=== PATIENT | male | born 1960 | race Caucasian/White ===

== ENCOUNTER 2018-05-25 11:50 | Emergency (ER) | payer BC ==
[2018-05-25 12:02] VITALS: RESP 18
[2018-05-25] MEDS ORDERED: KETOROLAC 30 MG/ML 1 ML VIAL IVP STA (14:02)
[2018-05-25] MEDS ORDERED: SODIUM CHLORIDE 0.9% 1,000 ML IV STA (14:02)
--- NOTE | 2018-05-25 14:17 | ED ---
General Adult HPI - General Chief complaint: Upper Respiratory Infection Stated complaint: COUGH, POSS PNEUMO Time Seen by Provider: 05/25/18 13:50 Source: patient, RN notes reviewed Mode of arrival: ambulatory Limitations: no limitations - History of Present Illness Initial comments: 57-year-old male presents to the emergency department for a chief complaint of cough 2 weeks. Patient states the cough has been productive with green and yellow mucus. Patient admits to smoking but denies history of COPD or asthma. Patient denies any fevers or chills at home. Patient states his has been diagnosed with bronchitis. Patient states he has chest pains across the anterior aspect of his chest when he coughs. He denies pain in the chest when not coughing. He states the pain is sharp in nature. Patient has no other complaints at this time including shortness of breath, chest pain, abdominal pain, nausea or vomiting, headache, or visual changes. - Related Data Home Medications Medication Instructions Recorded Confirmed Aspirin 81 mg PO DAILY 08/14/14 05/25/18 Metoprolol Tartrate [Lopressor] 25 mg PO BID 08/14/14 05/25/18 Simvastatin [Zocor] 20 mg PO HS 05/25/18 05/25/18 Previous Rx's Medication Instructions Recorded Albuterol Inhaler [Ventolin Hfa 1 - 2 puff INHALATION Q6HR PRN #1 05/25/18 Inhaler] inhaler Azithromycin [Zithromax Z-pack] 250 mg PO DIRECTED #6 tab 05/25/18 Benzonatate [Tessalon Perles] 200 mg PO Q8H PRN #15 capsule 05/25/18 predniSONE 50 mg PO DAILY #5 tablet 05/25/18 Allergies Allergy/AdvReac Type Severity Reaction Status Date / Time hydrocodone [From [place]] Allergy Unknown Verified 05/25/18 15:19 Review of Systems ROS Statement: Those systems with pertinent positive or pertinent negative responses have been documented in the HPI. ROS Other: All systems not noted in ROS Statement are negative. Past Medical History Additional Past Medical History / Comment(s): aortic aneurysm History of Any Multi-Drug Resistant Organisms: None Reported Past Surgical History: Heart Catheterization, Joint Replacement, Orthopedic Surgery Additional Past Surgical History / Comment(s): knee replacement Past Anesthesia/Blood Transfusion Reactions: No Reported Reaction Past Psychological History: No Psychological Hx Reported Smoking Status: Current every day smoker Past Alcohol Use History: Daily Past Drug Use History: None Reported General Exam Limitations: no limitations General appearance: alert, in no apparent distress Head exam: Present: atraumatic, normocephalic, normal inspection Eye exam: Present: normal appearance, PERRL, EOMI. Absent: scleral icterus, conjunctival injection, periorbital swelling ENT exam: Present: normal exam, mucous membranes moist Course Vital Signs 05/25/18 05/25/18 11:59 12:59 Temperature 98.2 F Pulse Rate 69 68 Respiratory 18 18 Rate Blood Pressure 117/82 O2 Sat by Pulse 98 97 Oximetry EKG Findings - EKG Comments: EKG Findings:: EKG shows a sinus bradycardia with a ventricular rate of 50, CO interval 198, QRS duration 96 - EKG Results: EKG: interpreted by ERMD (myself and Dr lilly), not changed from: (NO PREVIOUS EKG TO COMPARE) Medical Decision Making - Medical Decision Making 57-year-old male presents to the emergency determine for chief complaint of cough 2 weeks. Patient is concerned he may have pneumonia. Patient states he also has chest pain when coughing only. No pain in chest besides coughing. Pain also radiates to the back only when coughing. He denies shortness of breath. Patient does have a ascending thoracic aortic aneurysm. On exam lungs are clear to auscultation bilaterally. No wheezing or rhonchi noted. Patient is well appearing. CBC and CMP unremarkable. Troponin negative. Cardiac panel negative. Chest x-ray shows no acute cardiopulmonary process. CTA shows no evidence of pulmonary embolism. Aneurysm of the ascending aorta is stable compared to old exam at 4.4 cm. There is no sign of dissection. Patient will be given an inhaler as well as a steroid. He will follow up with primary care in 1-[address] Lilly did talk to the patient about his 4.4 cm aortic aneurysm and discussed the importance of following up with a cardiothoracic surgeon. Patient has been following up with Dr. RICO Sellers for this but will contact a cardiothoracic surgeon. Patient likely has a bronchitis. He will be given azithromycin, prednisone, albuterol inhaler, and Tessalon Perles. He will follow up with primary care in 1-2 days. He will return if he has any worsening symptoms. - Lab Data Result diagrams: 05/25/18 14:29 05/25/18 14:29 Lab Results 05/25/18 05/25/18 05/25/18 Range/Units 14:29 14:29 14:29 WBC 7.9 (3.8-10.6) k/uL RBC 4.84 (4.30-5.90) m/uL Hgb 15.2 (13.0-17.5) gm/dL Hct 46.6 (39.0-53.0) % MCV 96.1 (80.0-100.0) fL MCH 31.4 (25.0-35.0) pg MCHC 32.7 (31.0-37.0) g/dL RDW 13.2 (11.5-15.5) % Plt Count 180 (150-450) k/uL Neutrophils % 61 % Lymphocytes % 25 % Monocytes % 9 % Eosinophils % 2 % Basophils % 1 % Neutrophils # 4.8 (1.3-7.7) k/uL Lymphocytes # 2.0 (1.0-4.8) k/uL Monocytes # 0.7 (0-1.0) k/uL Eosinophils # 0.2 (0-0.7) k/uL Basophils # 0.1 (0-0.2) k/uL PT (9.0-12.0) sec INR (<1.2) APTT (22.0-30.0) sec Sodium 136 L (137-145) mmol/L Potassium 4.8 (3.5-5.1) mmol/L Chloride 105 (98-107) mmol/L Carbon Dioxide 23 (22-30) mmol/L Anion Gap 8 mmol/L BUN 17 (9-20) mg/dL Creatinine 0.80 (0.66-1.25) mg/dL Est GFR (CKD-EPI)AfAm >90 (>60 ml/min/1.73 sqM) Est GFR (CKD-EPI)NonAf >90 (>60 ml/min/1.73 sqM) Glucose 101 H (74-99) mg/dL Calcium 9.5 (8.4-10.2) mg/dL Magnesium 2.2 (1.6-2.3) mg/dL Total Bilirubin 0.5 (0.2-1.3) mg/dL AST 35 (17-59) U/L ALT 36 (21-72) U/L Alkaline Phosphatase 69 (38-126) U/L Total Creatine Kinase 175 H (55-170) U/L CK-MB (CK-2) 1.7 (0.0-2.4) ng/mL CK-MB (CK-2) Rel Index 1.0 Troponin I <0.012 (0.000-0.034) ng/mL Total Protein 7.5 (6.3-8.2) g/dL Albumin 4.3 (3.5-5.0) g/dL 05/25/18 Range/Units 14:29 WBC (3.8-10.6) k/uL RBC (4.30-5.90) m/uL Hgb (13.0-17.5) gm/dL Hct (39.0-53.0) % MCV (80.0-100.0) fL MCH (25.0-35.0) pg MCHC (31.0-37.0) g/dL RDW (11.5-15.5) % Plt Count (150-450) k/uL Neutrophils % % Lymphocytes % % Monocytes % % Eosinophils % % Basophils % % Neutrophils # (1.3-7.7) k/uL Lymphocytes # (1.0-4.8) k/uL Monocytes # (0-1.0) k/uL Eosinophils # (0-0.7) k/uL Basophils # (0-0.2) k/uL PT 9.6 (9.0-12.0) sec INR 1.0 (<1.2) APTT 23.3 (22.0-30.0) sec Sodium (137-145) mmol/L Potassium (3.5-5.1) mmol/L Chloride (98-107) mmol/L Carbon Dioxide (22-30) mmol/L Anion Gap mmol/L BUN (9-20) mg/dL Creatinine (0.66-1.25) mg/dL Est GFR (CKD-EPI)AfAm (>60 ml/min/1.73 sqM) Est GFR (CKD-EPI)NonAf (>60 ml/min/1.73 sqM) Glucose (74-99) mg/dL Calcium (8.4-10.2) mg/dL Magnesium (1.6-2.3) mg/dL Total Bilirubin (0.2-1.3) mg/dL AST (17-59) U/L ALT (21-72) U/L Alkaline Phosphatase (38-126) U/L Total Creatine Kinase (55-170) U/L CK-MB (CK-2) (0.0-2.4) ng/mL CK-MB (CK-2) Rel Index Troponin I (0.000-0.034) ng/mL Total Protein (6.3-8.2) g/dL Albumin (3.5-5.0) g/dL Disposition Clinical Impression: Bronchitis Disposition: HOME SELF-CARE Condition: Good Instructions: Upper Respiratory Infection (ED) Additional Instructions: Please take steroid and use inhaler as directed. Please follow-up with primary care provider in one to 2 days. Return to the emergency department if you have any worsening symptoms. Prescriptions: Albuterol Inhaler [Ventolin Hfa Inhaler] 1 - 2 puff INHALATION Q6HR PRN #1 inhaler PRN Reason: Shortness Of Breath Azithromycin [Zithromax Z-pack] 250 mg PO DIRECTED #6 tab Benzonatate [Tessalon Perles] 200 mg PO Q8H PRN #15 capsule PRN Reason: Cough predniSONE 50 mg PO DAILY #5 tablet Is patient prescribed a controlled substance at d/c from ED?: No Referrals: Christina Martini MD [Primary Care Provider] - 1-2 days Time of Disposition: 17:45
[2018-05-25 15:00] LABS: Basophils # (A) 0.1 k/uL (0-0.2); Basophils % (A) 1 %; Eosinophils # (A) 0.2 k/uL (0-0.7); Eosinophils % (A) 2 %; HCT 46.6 % (39.0-53.0); HGB 15.2 gm/dL (13.0-17.5); Lymphocytes % (A) 25 %; MCH 31.4 pg (25.0-35.0); MCHC 32.7 g/dL (31.0-37.0); MCV 96.1 fL (80.0-100.0); Mean Platelet Volume 8.2; Monocytes # (A) 0.7 k/uL (0-1.0); Monocytes % (A) 9 %; Neutrophils # (A) 4.8 k/uL (1.3-7.7); Neutrophils % (A) 61 %; Platelet Count 180 k/uL (150-450); RBC 4.84 m/uL (4.30-5.90); RDW 13.2 % (11.5-15.5); WBC 7.9 k/uL (3.8-10.6)
--- NOTE | 2018-05-25 15:04 | XR ---
EXAMINATION TYPE: XR chest 2V DATE OF EXAM: 05/25/2018 COMPARISON: 07/05/2011 HISTORY: 57-year-old male with chest pain TECHNIQUE: PA and lateral views FINDINGS: The cardiomediastinal silhouette, aorta, and pulmonary vasculature are within normal limits. Lungs an d pleural spaces are clear. IMPRESSION: No acute cardiopulmonary process.
[2018-05-25 15:05] LABS: Partial Thromboplastin Time 23.3 sec (22.0-30.0); Prothrombin Time 9.6 sec (9.0-12.0)
[2018-05-25 15:08] LABS: ALT 36 U/L (21-72); AST 35 U/L (17-59); Albumin 4.3 g/dL (3.5-5.0); Alkaline Phosphatase 69 U/L (38-126); Anion Gap 8 mmol/L; Blood Urea Nitrogen 17 mg/dL (9-20); Calcium 9.5 mg/dL (8.4-10.2); Carbon Dioxide 23 mmol/L (22-30); Chloride 105 mmol/L (98-107); Glucose 101 mg/dL (74-99); Magnesium 2.2 mg/dL (1.6-2.3); Potassium 4.8 mmol/L (3.5-5.1); Sodium 136 mmol/L (137-145); Total Bilirubin 0.5 mg/dL (0.2-1.3); Total Protein 7.5 g/dL (6.3-8.2)
[2018-05-25 15:24] LABS: Creatine Kinase 175 U/L (55-170)
[2018-05-25 15:37] LABS: Creatine Kinase MB 1.7 ng/mL (0.0-2.4); Troponin I <0.012 ng/mL (0.000-0.034)
--- NOTE | 2018-05-25 17:09 | CT ---
EXAMINATION TYPE: CT angio chest DATE OF EXAM: 05/25/2018 5:03 PM COMPARISON: 04/01/2015 HISTORY: Chest pain and cough x2 weeks. CT DLP: 446.2 mGycm Automated exposure control for dose reduction was used. CONTRAST: CTA scan of the thorax is performed without and with IV Contrast, patient injected with 100ml mL of I sovue 370, pulmonary embolism protocol. There are 3-D post processed images.. FINDINGS: The lungs are clear of infiltrate. There is no evidence of a pulmonary mass. There is no pleural effu rachel. There is no pericardial effusion. There is aneurysm of ascending aorta measures 4.4 cm. There i s no sign of dissection. There are no filling defects in the pulmonary arteries. There is no mediasti nal adenopathy. There are no hilar masses. There are some accessory spleens. Spleen is absent. The bony thorax appears intact. IMPRESSION: NO EVIDENCE OF PULMONARY EMBOLISM. ANEURYSM OF THE ASCENDING AORTA IS STABLE COMPARED TO OLD EXAM.
[2018-05-25 18:17] VITALS: BP 151/92; PULSE 56; TEMP 98.7
== END 2018-05-25 18:17 | disposition home or self-care (01) ==
LOC: EC 11:50
DX: J40 Bronchitis, not specified as acute or chronic (principal); I71.2 Thoracic aortic aneurysm, without rupture; F17.200 Nicotine dependence, unspecified, uncomplicated; Z88.5 Allergy status to narcotic agent; Z79.82 Long term (current) use of aspirin; Z79.899 Other long term (current) drug therapy
CPT/HCPCS: 36415; 93005; 80053; 82550; 82553; 83735; 84484; 85025; 85610; 85730; 87040; 71046; 71275; 99284; 96374; 96361 ×3; J1885; Q9967

== ENCOUNTER → 2018-11-19 | Outpatient (CLI) | payer OTHER ==
[2018-11-19 16:34] LABS: LDL Cholesterol,Calculated 72.8 mg/dL (0.0-131.0); VLDL Calculation 23.2 mg/dL (5.00-40.00)
== END ==
LOC: LABWHC1 08:21
PROVIDERS: ATTEND Internal Medicine Interventional Cardiology
DX: E78.5 Hyperlipidemia, unspecified (principal)
CPT/HCPCS: 36415; 80061; 82550; 84450; 84460

== ENCOUNTER → 2019-06-05 | Outpatient (CLI) | payer OTHER ==
--- NOTE | 2019-06-06 04:30 | CT ---
EXAMINATION TYPE: CT angio chest DATE OF EXAM: 06/05/2019 COMPARISON: 05/25/2018 HISTORY: 58-year-old male ascending Thoracic aortic aneurysm TECHNIQUE: Contiguous axial scanning of the chest performed with IV Contrast, patient injected with 1 00 mL of Isovue 370. Coronal/sagittal MIP reconstructions performed. CT DLP: 223.7 mGycm Automated exposure control for dose reduction was used. FINDINGS: Heart normal size without pericardial effusion. Aortic root caliber difficult to determine due to cardiac motion, estimated at 4.7 cm, unchanged. Ascending aorta aneurysmal at 4.7 cm, unchanged. Proximal arch is ectatic at 3.9 cm. Bovine configuration to the aortic arch. Distal arch aneurysmal at 3.6 cm. Upper descending thoracic aorta normal at 2.8 cm. Lower descending thoracic aorta ectatic and 2.6 cm. No evidence for aortic dissection. Scattered nonenlarged mediastinal lymph nodes are present. No thoracic lymphadenopathy by CT size cri teria. Dependent atelectasis posterior lungs. A couple calcified granulomas posterior right upper lobe are u nchanged. A couple 4 mm right middle lobe pulmonary nodules are unchanged. A 3 mm inferior lingular pulmonary nodule unchanged. No consolidation or pleural effusion. Visualized upper abdomen shows a fragmented spleen which may be a product of prior trauma or congenit al variation. Bones: Mild degenerative disc disease mid thoracic spine. IMPRESSION: 1. STABLE ANEURYSMAL THORACIC AORTA (AORTIC ROOT AND ASCENDING AORTA 4.7 CM AND DISTAL ARCH AT 3.6 CM ). 2. PRIOR GRANULOMATOUS DISEASE AND STABLE SCATTERED PULMONARY NODULES MEASURING UP TO 4 MM.
== END | disposition home or self-care (01) ==
LOC: RADCTMAIN 16:22
PROVIDERS: ATTEND Internal Medicine Interventional Cardiology
DX: I71.2 Thoracic aortic aneurysm, without rupture (principal); Q23.1 Congenital insufficiency of aortic valve; R91.8 Other nonspecific abnormal finding of lung field
CPT/HCPCS: 71275

== ENCOUNTER → 2020-01-19 | Outpatient (CLI) | payer OTHER ==
--- NOTE | 2020-01-19 10:30 | CT ---
EXAMINATION TYPE: CT angio chest DATE OF EXAM: 01/19/2020 COMPARISON: 06/05/2019 HISTORY: Follow up known thoracic aortic aneurysm CT DLP: 216.9 mGycm. Automated Exposure Control for Dose Reduction was Utilized. CONTRAST: CTA scan of the thorax is performed with IV Contrast, patient injected with 100 mL of Isovue 370, pul monary embolism protocol. MIP Images are created on CT scanner and reviewed. FINDINGS: LUNGS: There are scattered subcentimeter bilateral pulmonary nodules, but commonly on the right. Some of these are calcified as in the right lung apex on image 18 representing benign granulomatous melvin e however others are noncalcified such as on image 33 and 36 in the right middle lobe measuring up to 5 mm. Nodules appear unchanged from the prior of 06/05/2019. Bibasilar subsegmental atelectasis is seen. No focal consolidation. There is no pleural effusion or pneumothorax seen. The tracheobronchial tree is patent. MEDIASTINUM: Incidentally noted bovine aortic arch. Aortic root measures 4.7 cm, unchanged. Ascending thoracic aorta measures 4.6 cm as opposed to the prior measurement of 4.7 cm, within limitation of m easurement differences. Distal aortic arch measures 3.2 cm and proximal descending thoracic aorta wanda sures 2.6 cm. Descending thoracic aorta at its lower margin measures 2.5 cm. 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 There is satisfactory enhancement of the pulmonary artery and its branches, there is no CT evidence f or pulmonary embolism. There are no greater than 1 cm hilar or mediastinal lymph nodes. Mild coronar y artery calcifications are seen. Heart is mildly enlarged. OTHER: Minimal retroareolar symmetric gynecomastia. There is a mass abutting the left adrenal gland m ass measuring 4.1 x 3.0 cm. There is a stable from the prior and most likely is on the basis of splen osis as suggest on the prior. Old fracture transverse process of L1 is well corticated. Mild multilev el degenerative disc disease of the thoracic spine. IMPRESSION: 1. Stable aneurysmal dilatation of the aortic root and ascending thoracic aorta. 2. Continued stability of the noncalcified pulmonary nodules, likely on the basis of benign granuloma tous change as few calcified benign granulomas are also seen.
== END | disposition home or self-care (01) ==
LOC: RADCTMAIN 08:53
PROVIDERS: ATTEND Internal Medicine Interventional Cardiology
DX: I71.2 Thoracic aortic aneurysm, without rupture (principal); R91.8 Other nonspecific abnormal finding of lung field
CPT/HCPCS: 71275; Q9967

== ENCOUNTER 2020-02-27 08:21 | Day surgery (SDC) | payer OTHER ==
[2020-02-26 11:59] VITALS: BMI 24.2
[2020-02-27 08:34] VITALS: TEMP 97.5
[2020-02-27] MEDS ORDERED: LACTATED RINGERS 1,000 ML IV ONE (08:36)
[2020-02-27] MEDS ORDERED: LIDOCAINE 1% (10MG/ML) FOR IV START INTRADERMA ONE (08:41)
[2020-02-27] MEDS ORDERED: PROPOFOL 10 MG/ML 20 ML VIAL IV ONE (09:15)
[2020-02-27 09:59] VITALS: RESP 16
--- NOTE | 2020-02-27 10:01 | P.PCN ---
Date of Procedure: 02/27/20 Description of Procedure: Brief history: Patient is a pleasant 59-year-old male who presents for outpatient EGD and colonoscopy for evaluation of reflux, melena diverticulitis. Patient reports an episode of abdominal pain approximately 2 weeks ago associated melanotic stool and blood per rectum. Patient was treated with a course of antibiotic therapy for suspected diverticulitis with improvement of symptoms. Has a known history of reflux. Procedure performed: Esophagogastroduodenoscopy with biopsy Colonoscopy with polypectomy Estimated blood loss: Minimal. Preoperative diagnosis: Reflux, melena, diverticulitis, last colonoscopy over 5 years ago and normal per his recollection Anest[place]: [facility] [place] Procedure: After informed consent was obtained from the patient was brought into the endoscopy unit and IV sedation was administered by anesthesia under continuous monitoring. Initially upper endoscopy was done. The Olympus GF 190 video endoscope was inserted into the mouth and esophagus intubated without any difficulty and was gradually advanced into the stomach and duodenum and car efully examined. The bulb and second part of the duodenum appeared normal, except for some mild scattered erythema suggestive of mild duodenitis with biopsies taken. The scope was then withdrawn into the stomach adequately insufflated with air and upon careful examination the antrum and body, cardia and fundus appeared normal, except for some mild punctate erythema in the antrum and body suggestive of mild gastritis with biopsies taken. The scope was then withdrawn into the esophagus. The GE junction was located at 40 cm to the incisors and biopsied. It appeared regular with no erythema erosions or ulcerations. Rest of the esophagus appeared normal. Patient tolerated the procedure well. At this time the patient continued to remain sedation. Initial digital rectal examination was normal. Olympus CF 190 video colonoscope was then inserted into the rectum and gradually advanced to the cecum without any difficulty. Careful examination was performed as the scope was gradually being withdrawn. The prep was excellent. The cecum, ascending colon, transverse colon, descending colon, sigmoid colon and rectum appeared normal. A flat 3 mm ascending colon polyp just distal to the ileocecal valve was removed with cold forcep polypectomy. Retroflexion was performed in the rectum and no lesions were noted, low-grade internal hemorrhoids seen. Patient tolerated the procedure well. Impression: 1. Mild gastritis antrum and body, biopsied. Mild duodenitis biopsied. GE junction biopsies. 2. Low-grade internal hemorrhoids. Diminutive ascending colon polyp removed with cold forcep polypectomy. Recommendations: Findings of this examination were discussed with the patient as well as the patient's family. Okay to resume diet. Okay to resume medications. Await pathology from biopsies and polypectomy. Would recommend repeat colonoscopy in 5-7 years pending pathology from polypectomy.
[2020-02-27 10:18] VITALS: BP 120/82; PULSE 52
== END 2020-02-27 10:30 ==
LOC: ORWHC2ENDO 08:21
PROVIDERS: ATTEND Internal Medicine
DX: K21.0 Gastro-esophageal reflux disease with esophagitis (principal); K29.51 Unspecified chronic gastritis with bleeding; K63.89 Other specified diseases of intestine; K29.81 Duodenitis with bleeding; K64.8 Other hemorrhoids; K63.5 Polyp of colon; K57.91 Diverticulosis of intestine, part unspecified, without perforation or abscess with bleeding; K08.89 Other specified disorders of teeth and supporting structures; E78.5 Hyperlipidemia, unspecified; F17.210 Nicotine dependence, cigarettes, uncomplicated; Z88.0 Allergy status to penicillin; Z88.5 Allergy status to narcotic agent; Z79.899 Other long term (current) drug therapy; Z79.82 Long term (current) use of aspirin; Z98.890 Other specified postprocedural states; Z96.651 Presence of right artificial knee joint; Z82.49 Family history of ischemic heart disease and other diseases of the circulatory system
CPT/HCPCS: 43239; 45380; 88305; J2704

== ENCOUNTER → 2020-04-16 | Outpatient (CLI) | payer OTHER ==
--- NOTE | 2020-04-16 13:40 | US ---
EXAMINATION TYPE: US venous doppler duplex LE RT DATE OF EXAM: 04/16/2020 12:44 PM COMPARISON: 08/23/2017 CLINICAL HISTORY: R leg, R60.0 Edema. SIDE PERFORMED: Right TECHNIQUE: The lower extremity deep venous system is examined utilizing real time linear array sonog fermín with graded compression, doppler sonography and color-flow sonography. VESSELS IMAGED: External Iliac Vein (EIV) Common Femoral Vein Deep Femoral Vein Greater Saphenous Vein * Femoral Vein Popliteal Vein Small Saphenous Vein * Proximal Calf Veins (* superficial vessels) Right Leg: Negative for DVT Within the right popliteal fossa, there is a complex area visualized measuring 6.0 x 4.4 x 6.2 cm IMPRESSION: No evidence for DVT.
== END | disposition home or self-care (01) ==
LOC: RADUSWWP 12:20
PROVIDERS: ATTEND Family Medicine
DX: R60.0 Localized edema (principal)

== ENCOUNTER 2020-04-27 10:09 | Emergency (ER) | payer OTHER ==
[2020-04-27 10:15] VITALS: RESP 18
--- NOTE | 2020-04-27 11:04 | ED ---
General Adult HPI - General Chief complaint: Extremity Injury, Upper Stated complaint: L Arm Injury Time Seen by Provider: 04/27/20 10:39 Source: patient, RN notes reviewed, old records reviewed Mode of arrival: ambulatory Limitations: no limitations - History of Present Illness Initial comments: 59-year-old male presenting with bruising to the left bicep. He states that approximate 5 days ago he was using a wrench with his left arm and felt a crunching and popping sensation in his left bicep. Patient states that he initially had some pain but this pain has resolved. Yesterday he noted some bruising over the bicep. This has progressed over the past 24 hours. He denies numbness or tingling in the forearm or hand. He reports normal strength and movement. No other injuries. - Related Data Home Medications Medication Instructions Recorded Confirmed Aspirin 81 mg PO DAILY 08/14/14 02/26/20 Metoprolol Tartrate [Lopressor] 25 mg PO BID 08/14/14 02/26/20 Simvastatin [Zocor] 20 mg PO HS 05/25/18 02/26/20 Omeprazole [PriLOSEC] 20 mg PO DAILY PRN 02/26/20 02/26/20 Allergies Allergy/AdvReac Type Severity Reaction Status Date / Time hydrocodone [From [facility]] AdvReac Itching Verified 04/27/20 10:16 Review of Systems ROS Statement: Those systems with pertinent positive or pertinent negative responses have been documented in the HPI. ROS Other: All systems not noted in ROS Statement are negative. Past Medical History Past Medical History: GERD/Reflux Additional Past Medical History / Comment(s): currently intermittent abdominal pain,aortic aneurysm History of Any Multi-Drug Resistant Organisms: None Reported Past Surgical History: Heart Catheterization, Joint Replacement, Orthopedic Surgery Additional Past Surgical History / Comment(s): rt knee replacement Past Anesthesia/Blood Transfusion Reactions: No Reported Reaction Past Psychological History: No Psychological Hx Reported Smoking Status: Current every day smoker Past Alcohol Use History: Daily Past Drug Use History: Marijuana - Past Family History Mother Family Medical History: No Reported History Additional Family Medical History / Comment(s): CABG Father Family Medical History: Cancer, Myocardial Infarction ([place]) Additional Family Medical History / Comment(s): prostate General Exam Limitations: no limitations General appearance: alert, in no apparent distress Head exam: Present: atraumatic, normocephalic Eye exam: Present: normal appearance, PERRL ENT exam: Present: normal exam Neck exam: Present: normal inspection. Absent: tenderness, meningismus Respiratory exam: Present: normal lung sounds bilaterally. Absent: respiratory distress, wheezes Cardiovascular Exam: Present: regular rate, normal rhythm GI/Abdominal exam: Present: soft, distended Extremities exam: Present: other (Left upper extremity, there is some soft tissue swelling and ecchymosis over the bicep. No hematoma. Normal range of motion at the shoulder and elbow. Distal pulse intact both radial and ulnar. Normal telephone lineworker strength. No deformity noted to the bicep, no bulging.) Course Vital Signs 04/27/20 04/27/20 10:13 11:45 Temperature 97.9 F 98.1 F Pulse Rate 62 56 L Respiratory 18 18 Rate Blood Pressure 151/91 138/88 O2 Sat by Pulse 99 99 Oximetry Medical Decision Making - Medical Decision Making 59-year-old male with ecchymosis to the left bicep and history suggestive of a partial biceps tear. Distal pulses are intact. Ultrasound is performed, which is negative for DVT, no acute findings. Patient is placed in a sling and given orthopedic follow-up. He will continue to ice his left bicep. He will take Motrin for pain. Disposition Clinical Impression: Traumatic partial tear of biceps tendon Disposition: HOME SELF-CARE Condition: Good Instructions (If sedation given, give patient instructions): Tendon Rupture (ED) Is patient prescribed a controlled substance at d/c from ED?: No Referrals: Christina Martini MD [Primary Care Provider] - 1-2 days Trevor Luciano MD [STAFF PHYSICIAN] - 1-2 days Time of Disposition: 12:27
[2020-04-27 11:52] VITALS: TEMP 98.1
--- NOTE | 2020-04-27 12:22 | US ---
EXAMINATION TYPE: US venous doppler duplex UE LT DATE OF EXAM: 04/27/2020 COMPARISON: NONE CLINICAL HISTORY: dvt. Patient stated wrenched arms on lug nut and heard crackling/tearing sound on M onday and now has severe ecchymosis and swelling left upper arm x 1 day. SIDE PERFORMED: left arm Left Arm: Negative for DVT. Negative for SVT, Grayscale, color doppler, spectral doppler imaging performed of the deep veins of the left upper extr emity. There is normal flow, compressibility and vascular waveforms. IMPRESSION: No ultrasound evidence for acute deep or superficial venous thrombosis in the left upper extremity.
[2020-04-27 12:45] VITALS: BP 123/86; PULSE 78
== END 2020-04-27 12:30 | disposition home or self-care (01) ==
LOC: EC 10:09
DX: S40.022A Contusion of left upper arm, initial encounter (principal); S46.222A Laceration of muscle, fascia and tendon of other parts of biceps, left arm, initial encounter; K21.9 Gastro-esophageal reflux disease without esophagitis; F17.200 Nicotine dependence, unspecified, uncomplicated; Z79.899 Other long term (current) drug therapy; Z95.5 Presence of coronary angioplasty implant and graft; Z79.82 Long term (current) use of aspirin; Z88.5 Allergy status to narcotic agent; Z96.651 Presence of right artificial knee joint; W45.8XXA Other foreign body or object entering through skin, initial encounter; Y93.89 Activity, other specified; Y92.009 Unspecified place in unspecified non-institutional (private) residence as the place of occurrence of the external cause
CPT/HCPCS: 99284

== ENCOUNTER → 2021-07-04 | Outpatient (CLI) | payer OTHER ==
--- NOTE | 2021-07-04 19:37 | CT ---
EXAMINATION TYPE: CT angio chest DATE OF EXAM: 07/04/2021 COMPARISON: 01/19/20 HISTORY: thoracic aneurysm w/o rupture CT DLP: 426 mGycm CONTRAST: CTA thoracic aorta with 3-D reconstruction is performed and with IV Contrast, patient injected with 1 00 mL of Isovue 370. Contrast CTA of the thoracic aorta was performed from the lung apex through the upper abdomen. 3D re construction imaging obtained at a separate workstation. CT Chest: THORACIC AORTA: Ascending thoracic aortic aneurysm measuring 4.7 cm AP dimension versus prior measure ment of 4.7 cm. Mild atheromatous changes seen. There is no evidence for dissection or periaortic co llection. LUNGS: The lungs are clear and free of infiltrate or atelectasis. Stable less scattered noncalcified pulmonary nodular densities. No pleural effusion or CT evidence of interstitial lung disease. MEDIASTINUM: No evidence for mediastinal hematoma. The heart is not enlarged. No evidence for med iastinal mass or adenopathy. HILAR STRUCTURES: No evidence for mass. No hilar adenopathy is appreciated. OTHER: No significant abnormality. IMPRESSION- Stable ascending thoracic aortic aneurysm.
== END | disposition home or self-care (01) ==
LOC: RADCTMAIN 18:02
PROVIDERS: ATTEND Internal Medicine Interventional Cardiology
DX: I71.2 Thoracic aortic aneurysm, without rupture (principal)
CPT/HCPCS: 71275; Q9967

== ENCOUNTER → 2022-06-19 | Outpatient (CLI) | payer OTHER ==
--- NOTE | 2022-06-19 14:41 | XR ---
EXAMINATION TYPE: XR chest 2V DATE OF EXAM: 06/19/2022 COMPARISON: NONE HISTORY: Pain and abnormal weight loss. History of smoking. TECHNIQUE: Frontal and lateral views of the chest are obtained. FINDINGS: There is no focal air space opacity, pleural effusion, or pneumothorax seen. The cardiac silhouette size is within normal limits. The osseous structures are intact. IMPRESSION: No acute cardiopulmonary process.
--- NOTE | 2022-06-19 14:44 | XR ---
Left shoulder. HISTORY: Pain COMPARISON: None. TECHNIQUE: 3 views left shoulder were obtained. FINDINGS: There is no fracture, dislocation, intraosseous or intra-articular abnormality. IMPRESSION: No significant abnormality seen.
== END | disposition home or self-care (01) ==
LOC: RADXRMAIN 13:58
PROVIDERS: ATTEND Family Medicine
DX: M25.512 Pain in left shoulder (principal); R63.4 Abnormal weight loss; Z72.0 Tobacco use
CPT/HCPCS: 71046

== ENCOUNTER → 2022-07-07 | Outpatient (CLI) | payer OTHER ==
--- NOTE | 2022-07-07 20:37 | MR ---
EXAMINATION TYPE: MR shoulder LT wo con DATE OF EXAM: 07/07/2022 COMPARISON: Left shoulder x-ray June 19, 2022 HISTORY: Left shoulder pain and limited range of motion for 1 month, history of surgery. TECHNIQUE: Multiplanar, multisequence imaging of the left shoulder is performed without contrast. FINDINGS: Rotator Cuff: Increased signal with some focal tearing in the distal supraspinatus tendon, cleft is n oted sagittal image 8 . Distal infraspinatus tendon is intact. Subscapularis tendon intact. Rotator cuff muscle but preserv ed. Acromioclavicular Joint: Susceptibility artifact at level of the acromioclavicular joint likely produ ct of prior surgery or partial clavicle resection. Glenohumeral Joint: Small to moderate-sized joint effusion. No significant spurring Labrum: The superior labrum is blunted with increased signal. Biceps Tendon: The long head of biceps is nonidentified in normal location within bicipital groove. I t is suspected clinically dislocated and/or torn. Biceps anchor is not well seen. Bone marrow signal: Heterogeneous mild edema in the superolateral aspect of the humeral head. Similar finding in the inferior osseous glenoid. Other: No additional significant abnormality is appreciated. IMPRESSION: Suspect dislocation and tear of the long head of biceps tendon. Superior labral tear is p resent. Cleft tear of the supraspinatus tendon noted.
== END | disposition home or self-care (01) ==
LOC: RADMRIMAIN 15:41
PROVIDERS: ATTEND Family Medicine
DX: M75.112 Incomplete rotator cuff tear or rupture of left shoulder, not specified as traumatic (principal)

== ENCOUNTER → 2022-08-24 | Outpatient (CLI) | payer OTHER ==
[2022-08-24 22:36] LABS: Basophils % (A) 1.3 %; Eosinophils # (A) 0.13 X 10*3/uL (0.04-0.35); Eosinophils % (A) 1.7 %; HCT 45.9 % (39.6-50.0); HGB 15.4 g/dL (13.0-17.0); Immature Grans, Automated 0.1 %; Lymphocytes # (A) 1.95 X 10*3/uL (0.90-5.00); Lymphocytes % (A) 24.8 %; MCH 31.7 pg (27.0-32.0); MCHC 33.6 g/dL (32.0-37.0); MCV 94.4 fL (80.0-97.0); Mean Platelet Volume 12.6 fL (9.5-12.2); Monocytes % (A) 10.2 %; NRBC Per 100 WBC 0 /100 WBCS (0.0-0.0); Neutrophils # (A) 4.88 X 10*3/uL (1.80-7.70); Neutrophils % (A) 61.9 %; Platelet Count 206 X 10*3/uL (140-440); RBC 4.86 X 10*6/uL (4.40-5.60); RDW 13.6 % (11.5-14.5); WBC 7.87 X 10*3/uL (4.50-10.00)
[2022-08-24 22:46] LABS: Carbon Dioxide 24.1 mmol/L (20.0-27.5); Potassium 4.6 mmol/L (3.5-5.5)
== END | disposition home or self-care (01) ==
LOC: LABPAT 13:38
PROVIDERS: ATTEND Orthopaedic Surgery
DX: Z01.812 Encounter for preprocedural laboratory examination (principal); M75.42 Impingement syndrome of left shoulder
CPT/HCPCS: 80051; 85025

== ENCOUNTER 2022-09-03 12:20 | Day surgery (SDC) | payer OTHER ==
--- NOTE | 2022-09-03 02:03 | HP ---
HISTORY AND PHYSICAL DATE OF SURGERY: 09/03/2022. HISTORY OF PRESENT ILLNESS: Charles Perez is a 61-year-old patient seen with progressive left shoulder pain. We discussed options, he elected to proceed with left shoulder arthroscopy. Consent was obtained. Cardiac clearance was provided. PAST MEDICAL HISTORY: Cardiovascular disease, hypertension, hyperlipidemia. PAST SURGICAL HISTORY: Left shoulder arthroscopy. DAILY MEDICATIONS: 1. Aspirin. 2. Lopressor. 3. Simvastatin. ALLERGIES: Gilbert. SOCIAL HISTORY: Smokes cigarettes. PHYSICAL EVALUATION OF LEFT SHOULDER: Flexion is 140 degrees, abduction is 90 degrees. External rotation is 40 degrees with pain and weakness. Tenderness along the anterolateral acromion and rotator cuff insertion. Impingement is positive at 90 degrees. Drop-arm sign is positive. Distal neurovascular exam is intact. RADIOGRAPHS: Radiographs of the left shoulder revealed evidence for previous Kong procedure with residual acromial spur. Left shoulder MRI revealed rotator cuff tendon tear, biceps tear with dislocation and labral tear. IMPRESSION: 1. Left shoulder impingement with rotator cuff tear. 2. Left shoulder biceps tendon tear/dislocation. 3. Left shoulder labral tear. 4. Hypertension. 5. Hyperlipidemia. PLAN: Left shoulder arthroscopy with subacromial decompression, arthroscopic rotator cuff repair, biceps tenotomy and debridement. MMODL / IJN: [id number] /
[~2022-09-03 12:20] MED LIST: DEXAMETHASONE SOD PHOSPHATE 4 MG/ML 1 ML VIAL IV ONE; LACTATED RINGERS 1,000 ML IV SCH; ONDANSETRON 4 MG/2 ML VIAL IVP ONE; fentaNYL (PF) 50 MCG/ML 2 ML AMP IV PRN
[2022-09-03 13:17] VITALS: TEMP 96.9
[2022-09-03] MEDS ORDERED: MIDAZOLAM 2 MG/2 ML VIAL IVP ONE (13:54)
[2022-09-03] MEDS ORDERED: fentaNYL (PF) 50 MCG/1 ML VIAL IVP ONE (13:54)
[2022-09-03] MEDS ORDERED: ROPIVACAINE 5 MG/ML 30 ML VIAL ONE (15:06)
[2022-09-03] MEDS ORDERED: PROPOFOL 10 MG/ML 20 ML VIAL IV ONE (15:06)
[2022-09-03] MEDS ORDERED: fentaNYL (PF) 50 MCG/ML 2 ML AMP ONE (15:06)
[2022-09-03] MEDS ORDERED: MIDAZOLAM 2 MG/2 ML VIAL ONE (15:06)
[2022-09-03] MEDS ORDERED: SUCCINYLCHOLINE CHLORIDE 200 MG/10 ML VIAL IV ONE (15:06)
[2022-09-03] MEDS ORDERED: LIDOCAINE 4% LTA KIT (4 ML) TOPICAL ONE (15:06)
[2022-09-03] MEDS ORDERED: LIDOCAINE 2% INJ 20 MG/ML (2 ML VIAL) ONE (15:06)
[2022-09-03] MEDS ORDERED: LACTATED RINGERS 1,000 ML IV ONE (16:11)
--- NOTE | 2022-09-03 16:42 | P.OP ---
Date of Procedure: 09/03/22 Preoperative Diagnosis: Left shoulder impingement Postoperative Diagnosis: 1. Left shoulder rotator cuff tear 2. Left shoulder impingement Procedure(s) Performed: 1. Left shoulder arthroscopic rotator cuff repair 2. Left shoulder arthroscopic subacromial decompression Implants: 14.75 Arthrex swivel lock anchor Anesthesia: GETA, regional (Interscalene block) Surgeon: Gabriel Bond Senior Architect #1: Tk Mcwilliams Estimated Blood Loss (ml): 10 Pathology: none sent Condition: stable Disposition: PACU Indications for Procedure: 61-year-old gentleman seen with progressive left shoulder pain. After having treatment options discussed, he elected to proceed with arthroscopy. Operative Findings: See description of procedure Description of Procedure: Patient underwent an interscalene block by department of anesthesia. The patient was then taken to the operative suite. The patient underwent a general anesthetic by the department of anesthesia. The patient was placed into a lateral position and secured. There was appropriate padding of the bony prominence. Left shoulder was then prepped and draped in normal sterile orthopedic fashion. We placed the extremity in 10 pounds of longitudinal traction. A posterior incision was now made for a posterior working portal site. The trocar and cannula were inserted into the glenohumeral joint. Arthroscopy was initiated. Spinal needle was now inserted anteriorly, to ascertain the anterior working portal site. An incision was now made in that area, a trocar was inserted followed by a probe. There was some superficial tearing of the superior labrum. The biceps tendon was absent. There were grade 1 chondral malacia changes of the glenohumeral joint. I debrided out the superficial labral tear. I probed the residual labrum was stable. Instruments now removed from the glenohumeral joint. Utilizing the posterior working portal site, the trocar and cannula were inserted into the subacromial space. Arthroscopy initiated. I made an incision 2 fingerbreadths lateral to the acromion. I introduced my trocar followed by my ArthroCare ablator. I now began ablating thick subacromial bursal tissue, which exposed the undersurface of the anterior acromion. There was diminished subacromial space. There was a residual anterior lateral spur. I introduced a motorized bur and performed a decompression. I noted good decompression. The acromioclavicular joint was stable with no significant osteoarthritis no evidence of previous Kong procedure. I turned my attention to the rotator cuff tendon. There was an intrasubstance tear mid body proximal super space tendon measuring 2 cm. There was also tear along the distal supraspinatus more posteriorly which measured 1.5 cm. I debrided the intrasubstance tear. I debrided the distal tendon tear getting down to stable tendon tissue. The defect measured 1.5 cm and was freely mobile over the footprint. I abraded the footprint with a motorized bur. With this is some Boby GASPAR pasted 3 [id number] sutures and repaired that intrasubstance tear in a [id number] fashion. The suture limbs were clipped. The repair appeared stable. I turned my attention to the distal supraspinatus tendon. With the assistance of Boby GASPAR I pasted 3 everted mattress sutures through good bites of rotator cuff tendon. I punched hole in the footprint area for insertion of an anchor. I passed all 6 limbs of suture through the eyelet of a 4.75 Arthrex swivel lock anchor. I placed the eyelet into our pre-punched hole. I held it in position while Boby GASPAR tensioned all 6 limbs of suture and deployed the anchor with good fixation noted. All residual suture limbs were now clipped. We had good compression of the tendon along the entire footprint. Instruments now removed from the portal sites. All portal sites were approximated with nylon suture. Sterile dressings were applied followed by a shoulder immobilizer. Tk GASPAR assisted in this complex case. The patient was awakened, transferred to a bed, and taken to recovery in stable condition.
[2022-09-03 17:04] VITALS: RESP 16
[2022-09-03 17:29] VITALS: BP 137/88; PULSE 58
== END 2022-09-03 18:19 | disposition home or self-care (01) ==
LOC: OR 12:20
PROVIDERS: ATTEND Orthopaedic Surgery
DX: M75.102 Unspecified rotator cuff tear or rupture of left shoulder, not specified as traumatic (principal); M94.212 Chondromalacia, left shoulder; S43.432A Superior glenoid labrum lesion of left shoulder, initial encounter; M75.42 Impingement syndrome of left shoulder; I25.10 Atherosclerotic heart disease of native coronary artery without angina pectoris; I10 Essential (primary) hypertension; E78.5 Hyperlipidemia, unspecified; Z79.02 Long term (current) use of antithrombotics/antiplatelets; Z79.891 Long term (current) use of opiate analgesic; Z79.82 Long term (current) use of aspirin; Z88.5 Allergy status to narcotic agent; F17.210 Nicotine dependence, cigarettes, uncomplicated; Q23.1 Congenital insufficiency of aortic valve
CPT/HCPCS: 64415; 76942; 29826; 29827; J2250; J0330; J1100; J2405; J0690; J3010 ×2; J2795; J2704; J2001

== ENCOUNTER → 2022-11-27 | Outpatient (CLI) | payer OTHER ==
--- NOTE | 2022-11-27 15:48 | CT ---
This appears fairly similar to the 2016 exam in retrospect. EXAMINATION TYPE: CT angio thor/abd pel a jerome DATE OF EXAM: 11/27/2022 COMPARISON: CT 07/12/2017, 06/12/2016 HISTORY: 62-year-old male abdominal aneurysm. TECHNIQUE: Contiguous axial scanning of the chest, abdomen, and pelvis performed without and with IV Contrast, patient injected with 90 cc mL of Isovue 370. Coronal/sagittal reconstructions performed. 3 -D reconstructions generated on a dedicated independent workstation. CT DLP: 671.2 mGycm Automated exposure control for dose reduction was used. FINDINGS: Chest: Heart normal size without pericardial effusion. Mild LAD and circumflex coronary calcifications are p resent. There are moderate aortic valvular calcifications. There is motion limiting assessment of the aortic root is estimated at 5.0 cm versus 4.7 cm, previous ly. Ascending aorta 4.9 cm, unchanged. Mild atherosclerotic arch calcifications with bovine configuration to the aortic arch. Upper descending thoracic aorta has a caliber of 3.7 cm, unchanged. There is a rightward protuberance at this level from which a nondominant, aberrant right vertebral artery arises taking a retroesophag eal course. Lower descending thoracic aorta borderline ectatic at 2.6 cm, unchanged. A prominent but nonenlarged 7 mm precarinal lymph node is unchanged. No thoracic lymphadenopathy by C T size criteria. Lungs show mild diffuse bronchial wall thickening. Scattered mild paraseptal emphysema. A few calcifi ed granulomas noted in the right upper lung. Minimal paraseptal emphysema suggested. No consolidation or pleural effusion. A couple 5 mm anterior right basal pulmonary nodules remain unchanged compatible with a benign etiolo gy. ABDOMEN: Left upper quadrant splenules are unchanged. Either congenital or posttraumatic etiology. Arterial phase imaging of the liver, gallbladder, adrenal glands, right kidney, and pancreas show no gross abnormality. There is a 1.3 cm cortical cyst posterior left kidney. No dilated small bowel, free fluid, or free air. No mesenteric or retroperitoneal lymphadenopathy. Scattered mild colonic stool. The sigmoid colon is collapsed and secondary mild wall thickening suspe cted. No pericolonic inflammatory change. The celiac axis and SMA are patent as are the bilateral renal arteries. There is an accessory right r enal artery that has its takeoff just below the main right renal artery. TOMI is patent. There is mild apical scarring calcification distal abdominal aorta and common iliac arteries. There appears to be a small 1.1 cm saccular aneurysm projecting left laterally from the left common i liac artery bifurcation. PELVIS: Bladder distended. Prostate gland mildly enlarged at 4.6 cm wide. No abnormal fluid collection the pe lvis or pelvic lymphadenopathy. BONES: Mild degenerative disc disease midthoracic spine. An osseous destructive process. IMPRESSION: 1. ANEURYSMAL ASCENDING AORTA 4.9 CM, UNCHANGED. GIVEN THE MODERATE AORTIC VALVULAR CALCIFICATIONS, C ONSIDER AORTIC VALVE STENOSIS A POSSIBLE ETIOLOGY. 2. THE AORTIC ROOT IS SLIGHTLY INCREASED AT 5.0 CM VERSUS 4.7 CM, PREVIOUSLY. 3. THERE IS MILD ANEURYSM OF THE UPPER DESCENDING THORACIC AORTA AT 3.7 CM SECONDARY TO A RIGHT-SIDED PROTUBERANCE OF THE AORTIC WALL. THERE IS AN ABERRANT DIRECT TAKEOFF OF A NONDOMINANT RIGHT VERTEBRA L ARTERY FROM THIS REGION THAT TAKES A RETROESOPHAGEAL COURSE. CALIBER IS UNCHANGED. 4. UNCHANGED 1.1 CM SACCULAR ANEURYSM PROJECTING LEFT LATERALLY AT THE LEVEL OF THE LEFT COMMON ILIAC ARTERY BIFURCATION. 5. BRONCHIAL WALL THICKENING SUGGESTS BRONCHITIS OR CHRONIC ASTHMA. MINIMAL EMPHYSEMATOUS CHANGE IS S UGGESTED. 6. APPARENT MILD WALL THICKENING OF THE SIGMOID COLON LIKELY DUE TO NONDISTENTION RATHER THAN NONSPEC IFIC MILD COLITIS.
== END | disposition home or self-care (01) ==
LOC: RADCTMAIN 14:16
PROVIDERS: ATTEND Internal Medicine Interventional Cardiology
DX: I71.21 Aneurysm of the ascending aorta, without rupture (principal); I71.23 Aneurysm of the descending thoracic aorta, without rupture; K63.89 Other specified diseases of intestine; Q23.1 Congenital insufficiency of aortic valve; J98.09 Other diseases of bronchus, not elsewhere classified
CPT/HCPCS: 71275; 74174; Q9967

== ENCOUNTER 2023-02-11 05:46 | Day surgery (SDC) | payer OTHER ==
[2023-02-09 17:57] VITALS: BMI 23.8
[2023-02-11] MEDS ORDERED: SODIUM CHLORIDE 0.9% 1,000 ML in EMPTY BAG 1 BAG IV SCH (06:06)
[2023-02-11] MEDS ORDERED: ATORVASTATIN 80 MG TAB PO STA (06:06)
[2023-02-11] MEDS ORDERED: HEPARIN SODIUM,PORCINE 10,000 UNIT in SODIUM CHLORIDE 0.9% 1,000 ML IRRIGATION PRN (06:06)
[2023-02-11] MEDS ORDERED: NITROGLYCERIN SL TABS 0.4 MG TAB SUBLINGUAL PRN (06:06)
[2023-02-11] MEDS ORDERED: HEPARIN SODIUM,PORCINE 2,500 UNIT in SODIUM CHLORIDE 0.9% 250 ML IRRIGATION PRN (06:06)
[2023-02-11] MEDS ORDERED: ALPRAZolam 0.5 MG TAB PO PRN (06:06)
[2023-02-11] MEDS ORDERED: ASPIRIN 325 MG TAB PO STA (06:06)
[2023-02-11] MEDS ORDERED: ALPRAZolam 0.25 MG TAB PO PRN (06:06)
[2023-02-11 06:35] VITALS: RESP 18; TEMP 97.7
[2023-02-11 06:43] LABS: African American GFR (CKD) >90 (>60 ml/min/1.73 sqM); Anion Gap 8 mmol/L; Blood Urea Nitrogen 20 mg/dL (9-20); Calcium 9.2 mg/dL (8.4-10.2); Carbon Dioxide 26 mmol/L (22-30); Chloride 104 mmol/L (98-107); Glucose 101 mg/dL (74-99); Non-African American GFR(CKD) >90 (>60 ml/min/1.73 sqM); Potassium 4.3 mmol/L (3.5-5.1); Sodium 138 mmol/L (137-145)
[2023-02-11] MEDS ORDERED: HEPARIN SODIUM 1,000 UN/ML (10ML VL) ONE (07:24)
[2023-02-11] MEDS ORDERED: VERAPAMIL 2.5 MG/ML 2 ML AMP ONE (07:25)
[2023-02-11] MEDS: MIDAZOLAM 2 MG/2 ML VIAL IVP ONE ×2 (07:40→07:45)
[2023-02-11] MEDS ORDERED: LIDOCAINE 1% INJ 10MG/ML (5 ML VIAL-PF) SQ ONE (07:46)
[2023-02-11] MEDS ORDERED: fentaNYL (PF) 50 MCG/ML 2 ML AMP ONE (07:50)
[2023-02-11] MEDS: fentaNYL (PF) 50 MCG/ML 2 ML AMP IVP ONE ×2 (07:51→07:53)
[2023-02-11] MEDS ORDERED: VERAPAMIL SYRINGE (5 MG/10 ML) INTRAARTER ONE (08:00)
[2023-02-11 08:10] LABS: O2 Sat Blood Gas 73.3 %
[2023-02-11] MEDS ORDERED: HEPARIN SODIUM 1,000 UN/ML (10ML VL) IVP ONE (08:10)
[2023-02-11 08:13] LABS: O2 Sat Blood Gas 70.7 %
[2023-02-11 08:15] LABS: O2 Sat Blood Gas 72.5 %
[2023-02-11 08:17] LABS: O2 Sat Blood Gas 95.3 %
[2023-02-11] MEDS ORDERED: IOPAMIDOL-370 100ML BTL INJ ONE ×2 (08:28→08:32)
[2023-02-11] MEDS ORDERED: SODIUM CHLORIDE 0.9% 1,000 ML IV SCH (09:30)
--- NOTE | 2023-02-11 10:34 | CC ---
CARDIAC CATHETERIZATION REPORT DATE OF SERVICE: 02/11/2023. PROCEDURES PERFORMED: 1. Right and left heart catheterization with coronary angiography. 2. Thermodilution cardiac output and oxygen saturation run. PERFORMED BY: Dr. Duran Hahn. ANESTHESIA: Moderate conscious sedation time was 50 minutes. The patient was administered Versed and fentanyl. Oxygen saturation, hemodynamics, and EKG were monitored closely. CLINICAL INFORMATION: Mr. Charles Perez is a 62-year-old gentleman with a known history of bicuspid aortic valve with [id number] aortic insufficiency and enlarged ascending aorta of nearly 5 cm with a recent increase. His ejection fraction is well preserved. He is going for an aortic valve replacement and a tube graft of the ascending aorta at [facility]. However, I have advised him to have a coronary angiography to rule out obstructive CAD. His last cardiac catheterization was in 2010. He had no obstructive CAD at that time. Risks, benefits, options, and rationale were explained. PROCEDURE NOTE: Under local anesthesia and strict aseptic precautions, a 6-Polish introducer was placed in the right radial artery. He already had a right brachial access placed with a venous access. Using a micropuncture needle technique, I placed a radial 6- Polish introducer uneventfully. The brachial venous access was used to do the right heart catheterization. A 6-Polish introducer was placed after advancing under fluoroscopy a wire that came with the sheath. Right heart catheterization was performed with a 6- Polish balloon-tipped catheter. I then did a thermodilution cardiac output. Oxygen saturation was performed. Then, I turned my attention to coronary angiography. Using a JR4 catheter, I did right coronary selective injection. A JL5 catheter was used for the left coronary injection. I could not cross the aortic valve because of the unfolding of aorta. I did not persist. Left ventricular pressures were, therefore, not obtained. The wires and catheter were taken out. The sheath was taken out, and TR band was applied as per protocol with saturation in the fingers of the right hand of 94%. The brachial sheath will also be taken out and pressure applied. The patient tolerated the procedure well without complication. No family was available. I explained to the patient that he does not have any significant obstructive CAD, and I will send a CD to his surgeon at [facility]. CARDIAC CATHETERIZATION FINDINGS: The right atrial pressure was 3 mmHg. Right ventricular pressure was 28/3 mmHg. Pulmonary arterial pressure was 28/9 with a mean pressure of 17. Pulmonary capillary wedge pressure could not be ascertained correctly because I was unable to wedge the catheter easily; however, it is in the range of 12. Thermodilution cardiac output was 4.46 L. Oxygen saturation run suggested that the right atrial saturation was 73%. Right ventricular was 70%. Pulmonary arterial was 72%. Arterial saturation was 96%, and this translated into a [place] cardiac output of 6.13 L. CORONARY ANGIOGRAPHY FINDINGS: RIGHT CORONARY ARTERY: Dominant vessel. No significant disease, minor irregularities. Distally bifurcates into PDA and PLV, both of which supply a fair amount of myocardium. LEFT MAIN CORONARY ARTERY: This is a fair-caliber vessel. No significant disease. Trifurcates into LAD, circumflex, and ramus intermedius. Left main itself is free of significant disease. LEFT ANTERIOR DESCENDING CORONARY ARTERY: Good-caliber vessel. Mild calcification. Minor irregularities. No significant disease. Vessels are generally small in caliber. It runs all the way to the apex and curves over the apex to supply the inferoapical portion of the left ventricle. There are small septal and diagonal branches that come off from the LAD. RAMUS INTERMEDIUS: Also, looks like a high first obtuse marginal, has no significant disease, minor irregularities. CIRCUMFLEX: A small-caliber small-distribution vessel. Minor irregularities. No significant disease. LV pressures were not obtained. FINAL IMPRESSION: This patient does not have any significant pulmonary hypertension. There is no oxygen step-up. Thermodilution cardiac output is nearly 4.5 L, and [place] cardiac output is 6 L. He has a right-dominant system. No significant obstructive coronary artery disease. Left ventricular pressures were not obtained. Aortic Valve was not crossed. RECOMMENDATIONS: This patient will require aortic valve and ascending aorta replacement with a tube valve conduit, and this will be performed at [facility] shortly. I will send the CD of CT scan as well as my report to Dr. You. There was no family available, and details were discussed with the patient. MMODL / IJN: [id number] / MTDD
[2023-02-11] MEDS ORDERED: SODIUM CHLORIDE 0.9% 500 ML 500 ML IV ONE (12:03)
[2023-02-11 12:06] VITALS: BP 134/77; PULSE 56
== END 2023-02-11 12:21 | disposition home or self-care (01) ==
LOC: CATHCVL 05:46
PROVIDERS: ATTEND Internal Medicine Interventional Cardiology
DX: I25.10 Atherosclerotic heart disease of native coronary artery without angina pectoris (principal); Z95.2 Presence of prosthetic heart valve; I35.0 Nonrheumatic aortic (valve) stenosis; I70.0 Atherosclerosis of aorta; I10 Essential (primary) hypertension; E78.00 Pure hypercholesterolemia, unspecified; F17.210 Nicotine dependence, cigarettes, uncomplicated; Z79.82 Long term (current) use of aspirin; Z79.899 Other long term (current) drug therapy
CPT/HCPCS: 93456; 80048; 85018; 82810; 99152; 99153 ×2; C1769; C1894; C1751; J2250; J2001; J3010; J1644; Q9967

== ENCOUNTER → 2024-02-25 | Outpatient (CLI) | payer OTHER ==
--- NOTE | 2024-02-27 17:46 | US ---
EXAMINATION TYPE: US thyroid st tissue head/neck DATE OF EXAM: 02/25/2024 COMPARISON: CTA thoracoabdominal pelvis aorta 11/27/2022 CLINICAL INDICATION: Male, 63 years old with history of R22.1 SWELLING AND MASS; area of swelling at the left supraclavicular region. TECHNIQUE: Multiple grayscale ultrasound images of the left supraclavicular region site of palpable a bnormality were obtained. Additional contralateral images of the right side were obtained for compari son. FINDINGS/IMPRESSION: There is no discrete abnormality, lymphadenopathy, or mass noted at patients palpable area.
== END | disposition home or self-care (01) ==
LOC: RADUSWWP 15:29
PROVIDERS: ATTEND Family Medicine
DX: R22.1 Localized swelling, mass and lump, neck (principal)
CPT/HCPCS: 76536

== ENCOUNTER 2024-05-13 08:25 | Observation (INO) | payer OTHER ==
[2024-05-13 09:46] LABS: INR 0.9 (<1.2); Partial Thromboplastin Time 23.7 sec (22.0-30.0); Prothrombin Time 10.3 sec (10.0-12.5)
[2024-05-13 09:50] LABS: ALT 31 U/L (4-49); AST 34 U/L (17-59); African American GFR (CKD) >90 (>60 ml/min/1.73 sqM); Albumin 4.5 g/dL (3.5-5.0); Alkaline Phosphatase 56 U/L (38-126); Anion Gap 6 mmol/L; Basophils # (A) 0.1 k/uL (0-0.2); Basophils % (A) 1 %; Blood Urea Nitrogen 18 mg/dL (9-20); Carbon Dioxide 25 mmol/L (22-30); Chloride 105 mmol/L (98-107); Eosinophils # (A) 0.1 k/uL (0-0.7); Eosinophils % (A) 3 %; Glucose 95 mg/dL (74-99); HGB 15.6 gm/dL (13.0-17.5); Lipase 81 U/L (23-300); Lymphocytes # (A) 1.8 k/uL (1.0-4.8); Lymphocytes % (A) 31 %; MCH 30.6 pg (25.0-35.0); MCHC 33.1 g/dL (31.0-37.0); MCV 92.5 fL (80.0-100.0); Magnesium 2.2 mg/dL (1.6-2.3); Mean Platelet Volume 9.8; Monocytes # (A) 0.7 k/uL (0-1.0); Monocytes % (A) 12 %; Neutrophils % (A) 51 %; Non-African American GFR(CKD) >90 (>60 ml/min/1.73 sqM); Platelet Count 218 k/uL (150-450); Potassium 4.8 mmol/L (3.5-5.1); RBC 5.08 m/uL (4.30-5.90); RDW 13.6 % (11.5-15.5); Sodium 136 mmol/L (137-145); Total Bilirubin 0.6 mg/dL (0.2-1.3); Total Protein 7.7 g/dL (6.3-8.2); WBC 5.8 k/uL (3.8-10.6)
[2024-05-13 09:56] LABS: NT-Pro-B-Type Natriuretic Pept 110 pg/mL
--- NOTE | 2024-05-13 10:27 | ED ---
Chest Pain HPI - General Chief Complaint: Chest Pain Stated Complaint: Chest Pain Time Seen by Provider: 05/13/24 08:51 Source: patient, family Mode of arrival: ambulatory Limitations: no limitations - History of Present Illness Initial Comments: 63-year-old male with past medical history of aortic aneurysm, bicuspid aortic valve with repair in February 2023 who presents emergency department with chest pain. States that he had 2 episodes last night of sharp burning sensation in his chest. He did take some nitro however does not feel that helped him. He states the nitro is . He recently saw his cardiothoracic surgeon at [facility] earlier this month. He states he had a full normal workup. He does not have active symptoms at this time. He has any alleviating factors. Does have a history of GERD and takes Prilosec for it. He denies any shortness of breath. No fevers chills or cough. No lower extremity swelling. No other alleviating, precipitating or modifying factors - Related Data Home Medications Medication Instructions Recorded Confirmed Aspirin 81 mg PO DAILY 08/14/14 05/13/24 Simvastatin [Zocor] 20 mg PO HS 05/25/18 05/13/24 Omeprazole [PriLOSEC] 20 mg PO DAILY 02/26/20 05/13/24 Cefdinir [Omnicef] 300 mg PO BID 05/13/24 05/13/24 Cholecalciferol (Vitamin D3) 125 mcg PO DAILY 05/13/24 05/13/24 [Vitamin D3 (125 MCG = 5,000 IU)] Levothyroxine Sodium [Synthroid] 125 mcg PO DAILY 05/13/24 05/13/24 Otc Allergy Eye Drop(Unknown) 1 drop BOTH EYES DAILY PRN 05/13/24 05/13/24 amLODIPine [Norvasc] 5 mg PO DAILY 05/13/24 05/13/24 Allergies Allergy/AdvReac Type Severity Reaction Status Date / Time hydrocodone [From [place]] AdvReac Itching Verified 05/13/24 11:26 Review of Systems ROS Statement: Those systems with pertinent positive or pertinent negative responses have been documented in the HPI. ROS Other: All systems not noted in ROS Statement are negative. Past Medical History Past Medical History: GERD/Reflux Additional Past Medical History / Comment(s): currently intermittent abdominal pain,aortic aneurysm History of Any Multi-Drug Resistant Organisms: None Reported Past Surgical History: Heart Catheterization, Joint Replacement, Orthopedic Surgery Additional Past Surgical History / Comment(s): rt knee replacement, valve replacement, aortic aneurysm repair. Past Anesthesia/Blood Transfusion Reactions: No Reported Reaction Past Psychological History: No Psychological Hx Reported Smoking Status: Former smoker Past Alcohol Use History: Daily Past Drug Use History: Marijuana - Past Family History Mother Family Medical History: No Reported History Additional Family Medical History / Comment(s): CABG, aneurysm, missing a valve. Father Family Medical History: Cancer, Myocardial Infarction ([place]) Additional Family Medical History / Comment(s): prostate General Exam Limitations: no limitations General appearance: alert, in no apparent distress Head exam: Present: atraumatic, normocephalic, normal inspection Eye exam: Present: normal appearance, PERRL, EOMI. Absent: scleral icterus, conjunctival injection, periorbital swelling ENT exam: Present: normal exam, mucous membranes moist Neck exam: Present: normal inspection. Absent: tenderness, meningismus, lymph adenopathy Respiratory exam: Present: normal lung sounds bilaterally. Absent: respiratory distress, wheezes, rales, rhonchi, stridor Cardiovascular Exam: Present: regular rate, normal rhythm, normal heart sounds, clicks. Absent: systolic murmur, diastolic murmur, rubs, gallop GI/Abdominal exam: Present: soft, normal bowel sounds. Absent: distended, tenderness, guarding, rebound, rigid Extremities exam: Present: normal inspection, full ROM, normal capillary refill. Absent: tenderness, pedal edema, joint swelling, calf tenderness Back exam: Present: normal inspection Neurological exam: Present: alert, oriented X3, CN II-XII intact Psychiatric exam: Present: normal affect, normal mood Skin exam: Present: warm, dry, intact, normal color. Absent: rash Course Vital Signs 05/13/24 05/13/24 05/13/24 08:27 08:49 10:02 Temperature 98 F 97.7 F Pulse Rate 62 57 L 53 L Respiratory 18 18 16 Rate Blood Pressure 140/82 139/75 137/79 O2 Sat by Pulse 97 98 98 Oximetry 05/13/24 05/13/24 05/13/24 11:05 12:02 14:51 Temperature 97.8 F 97.9 F Pulse Rate 60 73 72 Respiratory 16 18 18 Rate Blood Pressure 137/79 115/68 114/76 O2 Sat by Pulse 100 95 97 Oximetry Chest Pain MDM - MDM Was pt. sent in by a medical professional or institution (, CHASITY, INSURANCE MARKETING REP, urgent care, hospital, or senior care...) When possible be specific @ -No Did you speak to anyone other than the patient for history (EMS, parent, family, police, friend...)? What history was obtained from this source @ -No Did you review nursing and triage notes (agree or disagree)? Why? @ -I reviewed and agree with nursing and triage notes Were old charts reviewed (outside hosp., previous admission, EMS record, old EKG, old radiological studies, urgent care reports/EKG's, senior care records)? Report findings @ -I reviewed cardiology catheterization from February 2023 Differential Diagnosis (chest pain, altered mental status, abdominal pain women, abdominal pain men, vaginal bleeding, weakness, fever, dyspnea, syncope, headache, dizziness, GI bleed, back pain, seizure, CVA, palpatations, mental health, musculoskeletal)? @ -Differential Chest Pain: Stable Angina, Unstable Angina, STEMI, NSTEMI Aortic Dissection, Pneumothorax, Musculoskeletal, Esophageal Spasm GERD, Cholecystitis, Pancreatitis, Zoster, this is not meant to be an all-inclusive list. EKG interpreted by me (3pts min.). @ -Yes and demonstrates sinus bradycardia with a rate of 53. UT interval 281. QRS 97. QTc of 410. No acute ST segment elevations or depressions. inverted T waves V2 X-rays interpreted by me (1pt min.). @ -Yes and demonstrates no acute acute process CT interpreted by me (1pt min.). @ -None done U/S interpreted by me (1pt. min.). @ -None done What testing was considered but not performed or refused? (CT, X-rays, U/S, labs)? Why? @ -None What meds were considered but not given or refused? Why? @ -None Did you discuss the management of the patient with other professionals (professionals i.e. CHASITY Gómez, INSURANCE MARKETING REP, lab, RT, psych nurse, social worker clinical, vocal teacher, teacher, police liaison officer, rehabilitation case coordinator)? Give summary @ -Discussed care with Dr. Buck Was smoking cessation discussed for >3mins.? @ -No Was critical care preformed (if so, how long)? @ -No Were there social determinants of health that impacted care today? How? (Homelessness, low income, unemployed, alcoholism, drug addiction, transportation, low edu. Level, literacy, decrease access to med. care, halfway, rehab)? @ -No Was there de-escalation of care discussed even if they declined (Discuss DNR or withdrawal of care, Hospice)? DNR status @ -No What co-morbidities impacted this encounter? (DM, HTN, Smoking, COPD, CAD, Cancer, CVA, ARF, Chemo, Hep., AIDS, mental health diagnosis, sleep apnea, morbid obesity)? @ -Aortic aneurysm and bicuspid aortic valve Was patient admitted / discharged? Hospital course, mention meds given and route, prescriptions, significant lab abnormalities, going to OR and other pertinent info. @ -Upon arrival patient seen and evaluated in room 9. Thorough history and physical exam was performed. Patient complains of chest pain with previous cardiac history. Laboratory studies are conducted and chest x-ray was performed. I do feel that the patient needs an echo to assess the status of his valve. He was agreeable to be admitted. Spoke spoke with Dr. Buck for admission Undiagnosed new problem with uncertain prognosis? @ -No Drug Therapy requiring intensive monitoring for toxicity (Heparin, Nitro, Insulin, Cardizem)? @ -No Were any procedures done? @ -No Diagnosis/symptom? @ -Acute chest pain, history of aortic valve repair, history of aortic aneurysm repair Acute, or Chronic, or Acute on Chronic? @ -Acute Uncomplicated (without systemic symptoms) or Complicated (systemic symptoms)? @ -Complicated Side effects of treatment? @ -No Exacerbation, Progression, or Severe Exacerbation? @ -No Poses a threat to life or bodily function? How? (Chest pain, [place], [place], pneumonia, PE, COPD, DKA, ARF, appy, cholecystitis, CVA, Diverticulitis, Homicidal, Suicidal, threat to staff... and all critical care pts) @ -No Disposition Clinical Impression: Chest pain Disposition: ADMITTED IP TO THIS [facility] Condition: Stable Is patient prescribed a controlled substance at d/c from ED?: No Time of Disposition: 11:25 Decision to Admit Reason: Admit from EC Decision Date: 05/13/24 Decision Time: 11:26
--- NOTE | 2024-05-13 10:46 | XR ---
EXAMINATION TYPE: XR chest 2V DATE OF EXAM: 05/13/2024 COMPARISON: 06/19/2022 INDICATION: Chest pain TECHNIQUE: Frontal and lateral views of the chest are obtained. FINDINGS: The heart size is normal. The pulmonary vasculature is normal. The lungs are clear. Cardiac valve surgery is evident. IMPRESSION: 1. No acute pulmonary process.
[2024-05-13] MEDS ORDERED: NALOXONE 0.4 MG/ML 1 ML VIAL IV PRN (11:26)
--- NOTE | 2024-05-13 12:24 | P.HPIM ---
History of Present Illness H&P Date: 05/13/24 Charles Perez, is a 63-year-old male who presented to [facility] emergency room with a chief complaint of chest pain, patient describes a pressure sensation and burning sensation in the middle of his chest radiating to his right arm, he took 3 nitroglycerin sublingual at home without significant relief, he decided to come to emergency room for further evaluation. Patient has a known history of thoracic aortic aneurysm with surgical repair, and history of bicuspid aortic valve with aortic valve replacement at [facility]. Patient stated that he had episodes of chest pain few weeks ago, he was evaluated at [facility] recently and was told that his heart was in good shape. He was evaluated in the emergency room vital examination on presentation reve aled a temperature of 98 pulse 62 respiration 18 blood pressure 140/82 pulse ox 97% on room air Laboratory data revealed a white blood count of 5.8 hemoglobin 15.6 platelet count 218 BUN 18 creatinine 0.8 troponin 0.012 point amylase and lipase within normal limits Testing in the emergency room revealed EKG revealed sinus bradycardia with first-degree AV block and left axis deviation and incomplete right bundle branch block, chest x-ray revealed no acute abnormality Patient was admitted to medical floor for further evaluation and treatment Past Medical History Past Medical History: GERD/Reflux Additional Past Medical History / Comment(s): currently intermittent abdominal pain,aortic aneurysm History of Any Multi-Drug Resistant Organisms: None Reported Past Surgical History: Heart Catheterization, Joint Replacement, Orthopedic Surgery Additional Past Surgical History / Comment(s): rt knee replacement, valve replacement, aortic aneurysm repair. Past Anesthesia/Blood Transfusion Reactions: No Reported Reaction Past Psychological History: No Psychological Hx Reported Smoking Status: Former smoker Past Alcohol Use History: Daily Past Drug Use History: Marijuana - Past Family History Mother Family Medical History: No Reported History Additional Family Medical History / Comment(s): CABG, aneurysm, missing a valve. Father Family Medical History: Cancer, Myocardial Infarction ([place]) Additional Family Medical History / Comment(s): prostate Medications and Allergies Home Medications Medication Instructions Recorded Confirmed Type Aspirin 81 mg PO DAILY 08/14/14 05/13/24 History Simvastatin [Zocor] 20 mg PO HS 05/25/18 05/13/24 History Omeprazole [PriLOSEC] 20 mg PO DAILY 02/26/20 05/13/24 History Cefdinir [Omnicef] 300 mg PO BID 05/13/24 05/13/24 History Cholecalciferol (Vitamin D3) 125 mcg PO DAILY 05/13/24 05/13/24 History [Vitamin D3 (125 MCG = 5,000 IU)] Levothyroxine Sodium [Synthroid] 125 mcg PO DAILY 05/13/24 05/13/24 History Otc Allergy Eye Drop(Unknown) 1 drop BOTH EYES DAILY PRN 05/13/24 05/13/24 History amLODIPine [Norvasc] 5 mg PO DAILY 05/13/24 05/13/24 History Allergies Allergy/AdvReac Type Severity Reaction Status Date / Time hydrocodone [From [place]] AdvReac Itching Verified 05/13/24 11:26 Physical Exam Vitals: Vital Signs Temp Pulse Resp BP Pulse Ox 05/13/24 11:05 97.8 F 60 16 137/79 100 05/13/24 10:02 53 L 16 137/79 98 05/13/24 08:49 97.7 F 57 L 18 139/75 98 05/13/24 08:27 98 F 62 18 140/82 97 Intake and Output 05/12/24 05/13/24 05/13/24 22:59 06:59 14:59 Other: Weight 68.039 kg In general patient is alert and oriented x 3 in no distress HEENT head normocephalic and atraumatic Neck is supple no JVD no goiter no lymphadenopathy no carotid bruit Chest examination is clear to auscultation no crackles no wheezing Cardiac exam reveals regular heart sounds S1 and S2 no gallops no murmurs Abdomen is soft nontender no organomegaly with normal bowel sounds Extremity exam reveals no edema no cyanosis or clubbing Neurological examination reveals no gross focal deficits Results CBC & Chem 7: 05/13/24 09:16 05/13/24 09:16 Labs: Abnormal Lab Results - Last 24 Hours (Table) 05/13/24 Range/Units 09:16 Sodium 136 L (137-145) mmol/L Assessment and Plan Plan: Episode of chest pain Underlying history of hypertension Underlying history of hyperlipidemia Underlying history of hypothyroidism Previous history of thoracic aortic aneurysm with surgical repair Previous history of aortic valve stenosis and bicuspid aortic valve with previous history of aortic valve replacement Underlying history of hypertension Underlying history of hyperlipidemia Underlying history of gastroesophageal reflux disease Rash in the groin area with possible cellulitis being treated with oral antibiotic as outpatient At this time patient is admitted to telemetry floor Home medications reviewed and reordered Serial EKG and cardiac enzymes ordered Cardiology consultation requested Infectious disease consultation requested regarding rash in the groin Will follow closely
[2024-05-13] MEDS: PANTOPRAZOLE 40 MG TABLET PO SCH (12:44)
[2024-05-13] MEDS: ATORVASTATIN 10 MG TAB PO SCH (20:43)
[2024-05-13] MEDS: CEFDINIR 300 MG CAP PO SCH (20:44)
--- NOTE | 2024-05-14 05:29 | CA ---
Transthoracic Echo Report Name: Charles Perez Age: 63 Gender: M : 1960 Exam Date: 05/13/2024 17:52 Exam Location: [place] [facility] Ht (in): 66 Wt (lb): 150 Ordering Physician: Mellissa Degroot DO Attending/Referring Phys: [id number], Zane [employer] Frame Inserter Parvin Thorpe RDCS Procedure CPT: Indications: chest pain, hx avr Cardiac Hx: Technical Quality: Fair Contrast 1: Total Dose (mL): Contrast 2: Total Dose (mL): MEASUREMENTS (Male / Female) Normal Values 2D ECHO LV Diastolic Diameter PLAX 4.0 cm 4.2 - 5.9 / 3.9 - 5.3 cm LV Systolic Diameter PLAX 2.2 cm IVS Diastolic Thickness 1.5 cm 0.6 - 1.0 / 0.6 - 0.9 cm LVPW Diastolic Thickness 1.4 cm 0.6 - 1.0 / 0.6 - 0.9 cm LV Relative Wall Thickness 0.7 RV Internal Dim ED PLAX 3.4 cm LA Volume 42.1 cm??? 18 - 58 / 22 - 52 cm??? LA Volume Index 23.6 cm???/m??? 16 - 28 cm???/m??? M-MODE Aortic Root Diameter MM 3.3 cm LA Systolic Diameter MM 4.2 cm LA Ao Ratio MM 1.3 DOPPLER AV Peak Velocity 183.8 cm/s AV Peak Gradient 13.5 mmHg AV Mean Velocity 122.0 cm/s AV Mean Gradient 6.9 mmHg AV Velocity Time Integral 33.9 cm LVOT Peak Velocity 78.6 cm/s LVOT Peak Gradient 2.5 mmHg LVOT Velocity Time Integral 17.6 cm MV Area PHT 2.9 cm??? Mitral E Point Velocity 77.9 cm/s Mitral A Point Velocity 115.5 cm/s Mitral E to A Ratio 0.7 MV Deceleration Time 258.0 ms MV E' Velocity 5.6 cm/s Mitral E to MV E' Ratio 13.9 TR Peak Velocity 234.5 cm/s TR Peak Gradient 22.0 mmHg Right Ventricular Systolic Press 26.7 mmHg FINDINGS Left Ventricle Moderately increased left ventricular wall thickness. Left ventricular cavity size normal. Abnormal (paradoxical) septal motion consistent with postoperative state. Left ventricular ejection fraction is estimated at 50-55 %. Grade 1 diastolic dysfunction. Right Ventricle Normal right ventricular size and function. Right ventricular systolic pressure within normal limits. Right Atrium Normal right atrial size. Left Atrium Normal left atrial size. Mitral Valve Structurally normal mitral valve. Mild mitral annular calcification. Mild mitral regurgitation. Aortic Valve Trileaflet aortic valve. No aortic valve stenosis or regurgitation. Aortic valve sclerosis. Tricuspid Valve Structurally normal tricuspid valve. Mild tricuspid regurgitation. Pulmonic Valve Trace pulmonic regurgitation. Pericardium No pericardial effusion. Aorta Normal size aortic root and proximal ascending aorta. CONCLUSIONS Left ventricular ejection fraction 50-55% Moderately increased left ventricular wall thickness RVSP 27 Mild mitral regurgitation Mild tricuspid regurgitation No pericardial effusion Previewed by: Dr. Mikie York DO (Electronically Signed) Final Date: 14 May 2024 05:28
[2024-05-14] MEDS: LEVOTHYROXINE 125 MCG TAB PO SCH (06:20)
[2024-05-14 08:19] VITALS: RESP 16
[2024-05-14] MEDS: amLODIPine 5 MG TAB PO SCH (08:40)
[2024-05-14] MEDS: CHOLECALCIFEROL 125 MCG (5000 IU) TABLET PO SCH (08:40)
[2024-05-14] MEDS: ASPIRIN 81 MG PO SCH (08:40)
--- NOTE | 2024-05-14 09:24 | P.PN ---
Subjective Progress Note Date: 05/14/24 Chalres Perez, is a 63-year-old male who presented to [facility] emergency room with a chief complaint of chest pain, patient describes a pressure sensation and burning sensation in the middle of his chest radiating to his right arm, he took 3 nitroglycerin sublingual at home without significant relief, he decided to come to emergency room for further evaluation. Patient has a known history of thoracic aortic aneurysm with surgical repair, and history of bicuspid aortic valve with aortic valve replacement at [facility]. Patient stated that he had episodes of chest pain few weeks ago, he was evaluated at [facility] recently and was told that his heart was in good shape. He was evaluated in the emergency room vital examination on presentation revealed a temperature of 98 pulse 62 respiration 18 blood pressure 140/82 pulse ox 97% on room air Laboratory data revealed a white blood count of 5.8 hemoglobin 15.6 platelet count 218 BUN 18 creatinine 0.8 troponin 0.012 point amylase and lipase within normal limits Testing in the emergency room revealed EKG revealed sinus bradycardia with first-degree AV block and left axis deviation and incomplete right bundle branch block, chest x-ray revealed no acute abnormality Patient was admitted to medical floor for further evaluation and treatment On 05/14/2024 patient is alert and oriented x 3. 2D echo completed showing an EF of 50 to 55%. Awaiting cardiology and infectious disease input. Patient repo rts some mild GI upset but denies any chest pain or shortness of breath. Patient denies nausea vomiting or diarrhea. Patient denies any urinary burning or frequency. Current vital signs temp 98.3, heart rate 77, respiratory rate 16, blood pressure 117/62 with a pulse ox of 98% on room air Objective - Vital Signs Vital signs: Vital Signs Temp 98.3 F 05/14/24 07:00 Pulse 77 05/14/24 07:00 Resp 16 05/14/24 07:00 BP 117/62 05/14/24 07:00 Pulse Ox 98 05/14/24 07:00 FiO2 Intake & Output 05/13/24 05/14/24 05/14/24 18:59 06:59 18:59 Intake Total 236 Balance 236 Weight 68.039 kg Intake: Oral 236 Other: # Voids 2 - Exam In general patient is alert and oriented x 3 in no distress HEENT head normocephalic and atraumatic Neck is supple no JVD no goiter no lymphadenopathy no carotid bruit Chest examination is clear to auscultation no crackles no wheezing Cardiac exam reveals regular heart sounds S1 and S2 no gallops no murmurs Abdomen is soft nontender no organomegaly with normal bowel sounds Extremity exam reveals no edema no cyanosis or clubbing Neurological examination reveals no gross focal deficits - Labs CBC & Chem 7: 05/13/24 09:16 05/13/24 09:16 Labs: Abnormal Lab Results - Last 24 Hours (Table) 05/13/24 Range/Units 09:16 Sodium 136 L (137-145) mmol/L Assessment and Plan Assessment: Episode of chest pain Underlying history of hypertension Underlying history of hyperlipidemia Underlying history of hypothyroidism Previous history of thoracic aortic aneurysm with surgical repair Previous history of aortic valve stenosis and bicuspid aortic valve with previous history of aortic valve replacement Underlying history of hypertension Underlying history of hyperlipidemia Underlying history of gastroesophageal reflux disease Rash in the groin area with possible cellulitis being treated with oral antibiotic as outpatient At this time patient is admitted to telemetry floor Home medications reviewed and reordered Serial EKG and cardiac enzymes ordered Cardiology consultation requested Infectious disease consultation requested regarding rash in the groin Will follow closely
[2024-05-14 10:40] LABS: Basophils # (A) 0.12 X 10*3/uL (0.00-0.10); Basophils % (A) 1.4 %; Eosinophils # (A) 0.25 X 10*3/uL (0.04-0.35); Eosinophils % (A) 2.9 %; HCT 44.6 % (39.6-50.0); Lymphocytes # (A) 2.36 X 10*3/uL (0.90-5.00); Lymphocytes % (A) 27.8 %; MCH 30.9 pg (27.0-32.0); MCHC 33.6 g/dL (32.0-37.0); Mean Platelet Volume 11.9 FL (9.5-12.2); Monocytes # (A) 1.01 X 10*3/uL (0.20-1.00); Monocytes % (A) 11.9 %; NRBC Per 100 WBC 0 X 10*3/uL (0.00-0.01); Neutrophils # (A) 4.73 X 10*3/uL (1.80-7.70); Neutrophils % (A) 55.8 %; Platelet Count 216 X 10*3/uL (140-440); RBC 4.85 X 10*6/uL (4.40-5.60); RDW 13.7 % (11.5-14.5); WBC 8.49 X 10*3/uL (4.50-10.00)
[2024-05-14 11:18] LABS: Blood Urea Nitrogen 16.9 mg/dL (9.0-27.0); Carbon Dioxide 24.4 mmol/L (21.6-31.8); Chloride 104 mmol/L (96-109); Glucose 106 mg/dL (70-110); Potassium 4.4 mmol/L (3.5-5.5); Sodium 138 mmol/L (135-145)
[2024-05-14 11:19] LABS: ALT 27 U/L (10-49); AST 21 U/L (14-35); Albumin 4.2 g/dL (3.8-4.9); Albumin/Globulin Ratio 1.75 Ratio (1.60-3.17); Alkaline Phosphatase 62 U/L (41-126); Calcium 9.3 mg/dL (8.7-10.3); Globulin 2.4 g/dL (1.6-3.3); Total Bilirubin 0.5 mg/dL (0.3-1.2); Total Protein 6.6 g/dL (6.2-8.2)
--- NOTE | 2024-05-14 13:48 | P.CRDCN ---
History of Present Illness Consult date: 05/14/24 Consult reason: chest pain Chief complaint: chest pain History of present illness: History of present illness: Patient is a pleasant 63-year-old male with significant past medical history of aortic aneurysm, bicuspid aortic valve status post aortic valve replacement in February 2023 at [facility] who presents with complaints of chest pain. He does follow with Dr. Hahn in the office. He was having issues with chest burning sensation in March and took nitro with unclear relief as his nitro was . 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 He reports that yesterday at 2 in the morning he got up to go to the bathroom and when he came back to bed he was unable to sleep due to chest burning sensation and right arm felt like it pain was burning. He did take a nitro the pain went away and he went back to bed. In the morning however the pain and burning sensation was intermittent and therefore he came to the emergency department. He did have similar episode of chest burning sensation back in 2011. EKG shows sinus rhythm with first-degree AV block. Labs reviewed: Hemoglobin 15.6, sodium 136, potassium 4.8, creatinine 0.8, BNP 110, troponin negative x 3. Echocardiogram 05/13/2024 with EF 50-55%, grade 1 diastolic dysfunction, no aortic valve stenosis, RVSP 27. He has not had any further chest pain or burning episodes since he has been in the hospital. He denies any dizziness, syncope, nausea. Prior left heart cath on 02/11/2023 showed no significant obstructive coronary artery disease. REVIEW OF SYSTEMS: No fever or chills. No cough or expectoration. No diaphoresis . Patient denies headache, dizziness, blurred vision, double vision. Patient denies any stomach discomfort. No nausea, vomiting. No hematochezia. No hematemesis. Denies any black stools or blood in his stools. Denies dysuria or hematuria. No muscle weakness or numbness. No chest pain or pressure. PHYSICAL EXAMINATION: This is a 63-year-old female in no apparent distress at the time of my examination. HEENT: Head is atraumatic, normocephalic. Pupils are equal, round. Sclerae anicteric. Conjunctivae are clear. Mucous membranes of the mouth are moist. Neck is supple. There is no jugular venous distention. No carotid bruit is heard. CHEST EXAMINATION: Lungs are clear to auscultation. No chest wall tenderness is noted on palpation or with deep breathing. HEART EXAMINATION: Heart regular rate and rhythm. S1, S2 heard. No murmurs, gallops or rub. ABDOMEN: Soft, nontender. Bowel sounds are heard. EXTREMITIES: 2+ peripheral pulses with no evidence of peripheral edema and no calf tenderness noted. NEUROLOGIC EXAMINATION: Patient is awake, alert and oriented x3. IMPRESSION AND PLAN: Bicuspid aortic valve status post aortic valve replacement February 2023 Aortic aneurysm Chest pain, atypical PLAN: ACS ruled out. He did have a relatively normal heart cath 1 year ago. Symptoms are atypical and may be related to nerve pain or neuropathy. No further cardiac workup indicated at this time. Continue with current regimen. Okay to discharge home. Follow-up in the office in 1-[address] Hahn. I am dictating on behalf of Dr. Mikie York's history/physical and assessment/plan. 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 Father Family Medical History: Cancer, Myocardial Infarction ([place]) Additional Family Medical History / Comment(s): prostate Medications and Allergies Home Medications Medication Instructions Recorded Confirmed Type Aspirin 81 mg PO DAILY 08/14/14 05/13/24 History Simvastatin [Zocor] 20 mg PO HS 05/25/18 05/13/24 History Omeprazole [PriLOSEC] 20 mg PO DAILY 02/26/20 05/13/24 History Cefdinir [Omnicef] 300 mg PO BID 05/13/24 05/13/24 History Cholecalciferol (Vitamin D3) 125 mcg PO DAILY 05/13/24 05/13/24 History [Vitamin D3 (125 MCG = 5,000 IU)] Levothyroxine Sodium [Synthroid] 125 mcg PO DAILY 05/13/24 05/13/24 History Otc Allergy Eye Drop(Unknown) 1 drop BOTH EYES DAILY PRN 05/13/24 05/13/24 History amLODIPine [Norvasc] 5 mg PO DAILY 05/13/24 05/13/24 History Allergies Allergy/AdvReac Type Severity Reaction Status Date / Time hydrocodone [From Fortine] AdvReac Itching Verified 05/13/24 11:26 Physical Exam Vitals: Vital Signs Temp Pulse Pulse Pulse Resp BP BP 05/14/24 07:00 98.3 F 77 16 117/62 05/14/24 02:00 98.0 F 61 17 129/78 05/13/24 19:30 98.1 F 65 16 104/66 05/13/24 15:42 97.8 F 67 17 128/85 05/13/24 14:51 72 18 114/76 Pulse Ox 05/14/24 07:00 98 05/14/24 02:00 99 05/13/24 19:30 98 05/13/24 15:42 99 05/13/24 14:51 97 Intake and Output 05/13/24 05/14/24 05/14/24 22:59 06:59 14:59 Intake Total 236 Balance 236 Intake: Oral 236 Other: # Voids 2 2 Weight 68.039 kg Results 05/14/24 03:53 05/14/24 03:53 Cardiac Enzymes 05/13/24 05/13/24 05/14/24 Range/Units 11:49 14:57 03:53 AST 21 (14-35) U/L Troponin I <0.012 0.013 (0.000-0.034) ng/mL CBC 05/14/24 Range/Units 03:53 WBC 8.49 (4.50-10.00) X 10*3/uL RBC 4.85 (4.40-5.60) X 10*6/uL Hgb 15.0 (13.0-17.0) g/dL Hct 44.6 (39.6-50.0) % Plt Count 216 (140-440) X 10*3/uL Comprehensive Metabolic Panel 05/14/24 Range/Units 03:53 Sodium 138 (135-145) mmol/L Potassium 4.4 (3.5-5.5) mmol/L Chloride 104 (96-109) mmol/L Carbon Dioxide 24.4 (21.6-31.8) mmol/L BUN 16.9 (9.0-27.0) mg/dL Creatinine 1.0 (0.6-1.5) mg/dL Glucose 106 (70-110) mg/dL Calcium 9.3 (8.7-10.3) mg/dL AST 21 (14-35) U/L ALT 27 (10-49) U/L Alkaline Phosphatase 62 (41-126) U/L Total Protein 6.6 (6.2-8.2) g/dL Albumin 4.2 (3.8-4.9) g/dL Current Medications Generic Name Dose Route Start Last Admin Trade Name Fabioq PRN Reason Stop Dose Admin Amlodipine Besylate 5 mg 05/14/24 09:00 05/14/24 08:40 Amlodipine 5 Mg Tab PO 5 mg DAILY LOIS Administration Aspirin 81 mg 05/14/24 09:00 05/14/24 08:40 Aspirin 81 Mg PO 81 mg DAILY LOIS Administration Atorvastatin Calcium 10 mg 05/13/24 21:00 05/13/24 20:43 Atorvastatin 10 Mg Tab PO 10 mg HS LOIS Administration Cefdinir 300 mg 05/13/24 21:00 05/14/24 08:40 Cefdinir 300 Mg Cap PO 300 mg BID LOIS Administration Protocol Cholecalciferol 125 mcg 05/14/24 09:00 05/14/24 08:40 Cholecalciferol 125 Mcg (5000 Iu) Tablet PO 125 mcg DAILY LOIS Administration Levothyroxine Sodium 125 mcg 05/14/24 06:30 05/14/24 06:20 Levothyroxine 125 Mcg Tab PO 125 mcg 0630 LOIS Administration Naloxone HCl 0.2 mg 05/13/24 11:26 Naloxone 0.4 Mg/Ml 1 Ml Vial IV Q2M PRN Opioid Reversal Pantoprazole Sodium 40 mg 05/13/24 12:30 05/14/24 08:40 Pantoprazole 40 Mg Tablet PO 40 mg DAILY LOIS Administration Intake and Output 05/13/24 05/14/24 05/14/24 22:59 06:59 14:59 Intake Total 236 Balance 236 Intake: Oral 236 Other: # Voids 2 2 Weight 68.039 kg 05/14/24 03:53 05/14/24 03:53
[2024-05-14 15:19] VITALS: BP 121/77; PULSE 73; TEMP 97.8
--- NOTE | 2024-05-14 15:28 | P.CONS ---
History of Present Illness - Reason for Consult Consult date: 05/14/24 Rash in the groin Requesting physician: Susan Buck - Chief Complaint Chest pain x 1 day - History of Present Illness Patient is a 63-year male with a past medical history nephric and for aortic aneurysm history of bicuspid aortic valve with repair February 2023 pre senting to the hospital concerning for 2 episode of chest pain was mostly burning sensation in the chest the night before presentation to the hospital due to took some nitro without any relief patient also has been dealing with a rash to the sacral/perirectal area this being his second episode and apparently being treated with a local cream and pill by his primary care physician however the patient not sure about the name of those 2 ID was consulted regarding the rash and need for further treatment. Patient currently denies having any fever or any chills has been complaining of mostly burning pain to the sacral area with the patient did have the rash with occasional itching denies having any drainage from the area and no current wound no rash or any other part of the body and no new medications Review of Systems Positive point and negatives has been mentioned in the HPI, complete review of systems was performed and all other systems are negative Past Medical History Past Medical History: GERD/Reflux Additional Past Medical History / Comment(s): aortic aneurysm History of Any Multi-Drug Resistant Organisms: None Reported Past Surgical History: Heart Catheterization, Joint Replacement, Orthopedic Surgery Additional Past Surgical History / Comment(s): rt knee replacement, valve replacement, aortic aneurysm repair, 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 Father Family Medical History: Cancer, Myocardial Infarction ([place]) Additional Family Medical History / Comment(s): prostate Medications and Allergies Home Medications Medication Instructions Recorded Confirmed Type Aspirin 81 mg PO DAILY 08/14/14 05/13/24 History Simvastatin [Zocor] 20 mg PO HS 05/25/18 05/13/24 History Omeprazole [PriLOSEC] 20 mg PO DAILY 02/26/20 05/13/24 History Cefdinir [Omnicef] 300 mg PO BID 05/13/24 05/13/24 History Cholecalciferol (Vitamin D3) 125 mcg PO DAILY 05/13/24 05/13/24 History [Vitamin D3 (125 MCG = 5,000 IU)] Levothyroxine Sodium [Synthroid] 125 mcg PO DAILY 05/13/24 05/13/24 History Otc Allergy Eye Drop(Unknown) 1 drop BOTH EYES DAILY PRN 05/13/24 05/13/24 History amLODIPine [Norvasc] 5 mg PO DAILY 05/13/24 05/13/24 History Allergies Allergy/AdvReac Type Severity Reaction Status Date / Time hydrocodone [From Prompton] AdvReac Itching Verified 05/13/24 11:26 Physical Exam Vitals: Vital Signs Temp Pulse Pulse Pulse Resp BP BP 05/14/24 07:00 98.3 F 77 16 117/62 05/14/24 02:00 98.0 F 61 17 129/78 05/13/24 19:30 98.1 F 65 16 104/66 05/13/24 15:42 97.8 F 67 17 128/85 05/13/24 14:51 72 18 114/76 05/13/24 12:02 97.9 F 73 18 115/68 Pulse Ox 05/14/24 07:00 98 05/14/24 02:00 99 05/13/24 19:30 98 05/13/24 15:42 99 05/13/24 14:51 97 05/13/24 12:02 95 Intake and Output 05/13/24 05/14/24 05/14/24 22:59 06:59 14:59 Intake Total 236 Balance 236 Intake: Oral 236 Other: # Voids 2 2 Weight 68.039 kg GENERAL DESCRIPTION: Middle-aged male lying in bed, no distress. No tachypnea or accessory muscle of respiration use. HEENT: Shows Pallor , no scleral icterus. Oral mucous membrane is dry. No pharyngeal erythema or thrush NECK: Trachea central, no thyromegaly. LUNGS: Unlabored breathing. Clear to auscultation anteriorly. No wheeze or crackle. HEART: S1, S2, regular rate and rhythm. No loud murmur ABDOMEN: Soft, no tenderness , guarding or rigidity, no organomegaly EXTREMITIES: No edema of feet. SKIN: Patient did have a rash to the sacral area mostly diffuse no blister vesicles or drainage NEUROLOGICAL: The patient is awake, alert, oriented x3, mood and affect normal. Results CBC & Chem 7: 05/14/24 03:53 05/14/24 03:53 Labs: Abnormal Lab Results - Last 24 Hours (Table) 05/14/24 Range/Units 03:53 Monocytes # 1.01 H (0.20-1.00) X 10*3/uL Basophils # 0.12 H (0.00-0.10) X 10*3/uL Assessment and Plan (1) Rash Status: Acute Code(s): R21 - RASH AND OTHER NONSPECIFIC SKIN ERUPTION SNOMED Code(s): 311290926 (2) Cutaneous candidiasis Status: Acute Code(s): B37.2 - CANDIDIASIS OF SKIN AND NAIL SNOMED Code(s): 51683890 Plan: 1patient with a rash to the sacral area clinical suspicious mostly for cutaneous candidiasis rather than bacterial cellulitis 2we will apply nystatin cream to the area twice a day and see clinical response Multiple question concern answered We will follow on clinical condition and cultures to further adjust medication if needed Thank you for this consultation we will follow the patient along with you Dictation was produced using [employer] dictation software. please excuse any grammatical, word or spelling errors. Time with Patient: Greater than 30
[2024-05-14] MEDS: NYSTATIN 100,000UNIT/GM CREAM 30 GM TUBE TOPICAL SCH (15:37)
--- NOTE | 2024-06-14 14:28 | P.DS ---
Providers Date of admission: 05/13/24 11:26 Expected date of discharge: 05/14/24 Attending physician: Susan Buck Consults: 05/13/24 11:26 Consult Physician Urgent Consulting Provider: [facility] Consult Reason/Comments: acute chest pain, hx avr Do you want consulting provider notified?: Yes 05/13/24 12:25 Consult Physician Routine Consulting Provider: Beto Walter Consult Reason/Comments: rash in the groin Do you want consulting provider notified?: Yes Primary care physician: Christina Martini [facility] Course: Discharge diagnosis Episode of chest pain Underlying history of hypertension Underlying history of hyperlipidemia Underlying history of hypothyroidism Previous history of thoracic aortic aneurysm with surgical repair Previous history of aortic valve stenosis and bicuspid aortic valve with previous history of aortic valve replacement Underlying history of hypertension Underlying history of hyperlipidemia Underlying history of gastroesophageal reflux disease Rash in the groin area with possible cellulitis being treated with oral antibiotic as outpatient Hospital course Charles Perez, is a 63-year-old male who presented to [facility] emergency room with a chief complaint of chest pain, patient describes a pressure sensation and burning sensation in the middle of his chest radiating to his right arm, he took 3 nitroglycerin sublingual at home without significant relief, he decided to come to emergency room for further evaluation. Patient has a known history of thoracic aortic aneurysm with surgical repair, and history of bicuspid aortic valve with aortic valve replacement at [facility]. Patient stated that he had episodes of chest pain few weeks ago, he was evaluated at [facility] recently and was told that his heart was in good shape. He was evaluated in the emergency room vital examination on presentation revealed a temperature of 98 pulse 62 respiration 18 blood pressure 140/82 pulse ox 97% on room air Laboratory data revealed a white blood count of 5.8 hemoglobin 15.6 platelet count 218 BUN 18 creatinine 0.8 troponin 0.012 point amylase and lipase within normal limits Testing in the emergency room revealed EKG revealed sinus bradycardia with first-degree AV block and left axis deviation and incomplete right bundle branch block, chest x-ray revealed no acute abnormality Patient was admitted to medical floor for further evaluation and treatment On 05/14/2024 patient is alert and oriented x 3. 2D echo completed showing an EF of 50 to 55%. Awaiting cardiology and infectious disease input. Patient reports some mild GI upset but denies any chest pain or shortness of breath. Patient denies nausea vomiting or diarrhea. Patient denies any urinary burning or frequency. Current vital signs temp 98.3, heart rate 77, respiratory rate 16, blood pressure 117/62 with a pulse ox of 98% on room air Patient was evaluated by infectious disease and cardiology services cleared for discharge patient to follow-up with PCP and consulting providers for further management Patient Condition at Discharge: Stable Plan - Discharge Summary New Discharge Prescriptions: No Action Aspirin 81 mg PO DAILY Simvastatin [Zocor] 20 mg PO HS Omeprazole [PriLOSEC] 20 mg PO DAILY Levothyroxine Sodium [Synthroid] 125 mcg PO DAILY Cholecalciferol (Vitamin D3) [Vitamin D3 (125 MCG = 5,000 IU)] 125 mcg PO DAILY amLODIPine [Norvasc] 5 mg PO DAILY Cefdinir [Omnicef] 300 mg PO BID Otc Allergy Eye Drop(Unknown) 1 drop BOTH EYES DAILY PRN PRN Reason: Allergy Symptoms Discharge Medication List Aspirin 81 mg PO DAILY 08/14/14 [History] Simvastatin [Zocor] 20 mg PO HS 05/25/18 [History] Omeprazole [PriLOSEC] 20 mg PO DAILY 02/26/20 [History] Cefdinir [Omnicef] 300 mg PO BID 05/13/24 [History] Cholecalciferol (Vitamin D3) [Vitamin D3 (125 MCG = 5,000 IU)] 125 mcg PO DAILY 05/13/24 [History] Levothyroxine Sodium [Synthroid] 125 mcg PO DAILY 05/13/24 [History] Otc Allergy Eye Drop(Unknown) 1 drop BOTH EYES DAILY PRN 05/13/24 [History] amLODIPine [Norvasc] 5 mg PO DAILY 05/13/24 [History] Follow up Appointment(s)/Referral(s): Christina Martini MD [Primary Care Provider] - 1-2 days Mikie York DO [STAFF PHYSICIAN] - 1 Week Patient Instructions/Handouts: Chest Pain (DC), Acute Rash (DC) Discharge Disposition: HOME SELF-CARE
== END 2024-05-14 15:46 | disposition home or self-care (01) ==
LOC: EC 08:25 → 6NMEDSUR 11:26
PROVIDERS: ADMIT Internal Medicine; ATTEND Internal Medicine
DX: R07.89 Other chest pain (principal); B37.2 Candidiasis of skin and nail; Q23.1 Congenital insufficiency of aortic valve; I71.20 Thoracic aortic aneurysm, without rupture, unspecified; K21.9 Gastro-esophageal reflux disease without esophagitis; I10 Essential (primary) hypertension; E78.5 Hyperlipidemia, unspecified; E03.9 Hypothyroidism, unspecified; Z87.891 Personal history of nicotine dependence; Z95.2 Presence of prosthetic heart valve; Z79.82 Long term (current) use of aspirin; Z79.890 Hormone replacement therapy; Z79.899 Other long term (current) drug therapy; Z88.5 Allergy status to narcotic agent
CPT/HCPCS: 36415; 71046; 80053; 83690; 83735; 83880; 84484; 85025; 85610; 85730; 93005; 93306; 99285

== ENCOUNTER → 2024-09-15 | Outpatient (CLI) | payer OTHER ==
--- NOTE | 2024-09-15 10:45 | CT ---
EXAMINATION TYPE: CT abdomen pelvis w con DATE OF EXAM: 09/15/2024 COMPARISON: CTA chest, abdomen and pelvis dated 11/27/2022 CLINICAL INDICATION: Male, 63 years old with history of R10.13 EPIGASTRIC PAIN; PHH, Epigastric pain, rectal pain TECHNIQUE: Performed with Oral Contrast and with IV Contrast, patient injected with 100 mL of Isovue 300. CT DLP: 514.[address] CTDI: mGy Automated exposure control for dose reduction was used. FINDINGS: The lung bases are clear. The gallbladder is normal without distention, wall thickening, pericholecystic fluid or gallstones. T here is no biliary ductal dilatation. There is no focal mass or organomegaly involving the liver, pancreas, spleen or adrenal glands. There are stable splenules. There is no solid renal mass or hydronephrosis and there is homogeneous contrast enhancement of the r enal parenchyma. The caliber the abdominal aorta is normal is no retroperitoneal adenopathy or hemorr nikki. The bowel loops are normal in caliber and there is no evidence of dilatation or obstruction. No infla mmatory changes are identified in the bowel wall or mesentery. There is no free intraperitoneal air or fluid. No pelvic mass, free fluid, abscess or adenopathy. The osseous structures and soft tissues are intact. IMPRESSION: No significant abnormality seen. No acute changes within the abdomen or pelvis. No significant interv al change compared to the prior study. [facility], , 09/15/2024 10:43 AM
== END | disposition home or self-care (01) ==
LOC: RADCTMAIN 07:38
PROVIDERS: ATTEND Family Medicine
DX: R10.13 Epigastric pain (principal); K62.89 Other specified diseases of anus and rectum
CPT/HCPCS: 74177; Q9967

== ENCOUNTER → 2024-09-15 | Outpatient (CLI) | payer OTHER ==
--- NOTE | 2024-09-15 09:14 | FL ---
EXAMINATION TYPE: FL sniff test without CXR DATE OF EXAM: 09/15/2024 8:31 AM COMPARISON: CT 06/03/2023 CLINICAL INDICATION: Male, 63 years old with shortness of breath, history of R06.00 DYSPNEA, UNSPECIF IED, patient status post previous open heart surgery in 2022, experiencing progressive shortness of b reath. Total fluoroscopy time 54 seconds. Total images: 13. Total DAP: 25 mGycm2. TECHNIQUE: Multiple fluoroscopic images are taken during quiet breathing, deep inspiration expiration , and sniffing maneuver. FINDINGS: Median sternotomy wires and prosthetic cardiac valve noted. Slight asymmetric elevation right hemidiaphragm which may normal. During quiet breathing and deep inspiration expiration, there is normal movement of both sides of the diaphragm. With sniffing maneuver, there is appropriate direction of movement but with slight hesitancy and dimi nished excursion of the left hemidiaphragm. No nely paradoxical movement. IMPRESSION: Findings above suggest mild weakness of the left hemidiaphragm both without nely paresis. [facility], , 09/15/2024 9:11 AM
== END | disposition home or self-care (01) ==
LOC: RADFLMAIN 07:46
PROVIDERS: ATTEND Internal Medicine
DX: R06.00 Dyspnea, unspecified (principal); Z98.890 Other specified postprocedural states
CPT/HCPCS: 76000

== ENCOUNTER → 2024-12-29 | Outpatient (CLI) | payer OTHER ==
--- NOTE | 2024-12-29 13:44 | CT ---
EXAMINATION TYPE: CT angio chest DATE OF EXAM: 12/29/2024 COMPARISON: 07/04/2021 CLINICAL INDICATION: Male, 64 years old with history of CHF; PHH, f/u aneurysm TECHNIQUE: CTA scan of the thorax is performed without and with IV Contrast, patient injected with 100ml mL of I sovue 370, pulmonary embolism protocol. MIP images are created and reviewed. CT DLP: 499.[address] CTDI: mGy Automated exposure control for dose reduction was used. FINDINGS: The ascending thoracic aorta from 4.7 cm to 4.8 centimeters. There is been interval placement. There is no mediastinal, hilar or axillary adenopathy. There is no airspace consolidation or interstitial density. There is no pleural effusion or pneumothorax. There are multiple stable sub-6 mm nodules in the right upper and middle lobes but no new or suspicio us nodule. The osseous structures are intact. IMPRESSION: 1. Interval placement of a prosthetic aortic valve. 2. Ascending thoracic aortic aneurysm has increased from 4.7 cm to 4.8 cm. 3. No acute cardiopulmonary disease. 4. No suspicious lung mass or nodule. Multiple stable sub-6 mm right lung nodules [facility], , 12/29/2024 1:42 PM
== END | disposition home or self-care (01) ==
LOC: RADCTMAIN 12:36
PROVIDERS: ATTEND Internal Medicine Interventional Cardiology
DX: I71.21 Aneurysm of the ascending aorta, without rupture (principal); I20.9 Angina pectoris, unspecified; I50.9 Heart failure, unspecified; R91.8 Other nonspecific abnormal finding of lung field; Z95.2 Presence of prosthetic heart valve
CPT/HCPCS: 71275; Q9967

== ENCOUNTER 2025-01-05 06:04 | Day surgery (SDC) | payer OTHER ==
[2025-01-02 11:00] VITALS: BMI 24.6
[2025-01-05 06:52] VITALS: TEMP 97.7
[2025-01-05] MEDS: IV FLUID CONTINUATION 1,000 ML IV ONE (07:00)
[2025-01-05] MEDS: LACTATED RINGERS 1,000 ML IV SCH (07:00)
[2025-01-05] MEDS ORDERED: PROPOFOL 10 MG/ML 20 ML VIAL IV ONE (07:30)
[2025-01-05 07:56] VITALS: RESP 20
--- NOTE | 2025-01-05 08:16 | P.PCN ---
Date of Procedure: 01/05/25 Procedure(s) Performed: Brief history: Patient is a pleasant 64-year-old white male scheduled for an elective upper endoscopy as well as colonoscopy as a part of evaluation of GERD/epigastric pain and screening for history of colon polyps Procedure performed: Esophagogastroduodenoscopy with biopsy Colonoscopy Preoperative diagnosis: GERD/epigastric pain Screening for history of colon polyps Anesthesia: MAC Procedure: After informed consent was obtained from the patient was brought into the endoscopy unit and IV sedation was administered by anesthesia under continuous monitoring. Initially upper endoscopy was done. The Olympus GF 160 video endoscope was inserted inserted into the mouth and esophagus intubated without any difficulty and was gradually advanced into the stomach and duodenum and carefully examined. The bulb and second part of the duodenum appeared normal. The scope was then withdrawn into the stomach adequately insufflated with air and upon careful examination the antrum had mild gastritis and biopsies were done from this area. Mucosa body, cardia and fundus appeared normal. The scope was then withdrawn into the esophagus. Small hiatal hernia noted. The GE junction was located at 40 cm to the incisors. It appeared regular with no erythema erosions or ulcerations. Rest of the esophagus appeared normal. Biopsies were done from the distal esophagus patient tolerated the procedure well. At this time the patient continued to remain sedation. Initial digital rectal examination was normal. Olympus CF 160 video colonoscope was then inserted into the rectum and gradually advanced to the cecum without any difficulty. Careful examination was performed as the scope was gradually being withdrawn. The prep was excellent. The cecum, ascending colon, transverse colon, descending colon, sigmoid colon and rectum appeared normal. Retroflexion was performed in the rectum and no lesions were noted. Patient tolerated the procedure well. Impression: 1. Upper endoscopy revealed mild antral gastritis and small hiatal hernia 2. Colonoscopy was within normal limits with no evidence of colorectal neoplasia Recommendations: Findings of this examination were discussed with the patient as well as his family. He was advised to follow-up with the biopsy results. He was advised to increase the omeprazole to 20 mg twice daily and follow antireflux measures. Recommend repeat colonoscopy in 10 years
[2025-01-05 08:17] VITALS: BP 114/77; PULSE 76
== END 2025-01-05 08:40 | disposition home or self-care (01) ==
LOC: ORWHC2ENDO 06:04
PROVIDERS: ATTEND Internal Medicine Gastroenterology
DX: Z12.11 Encounter for screening for malignant neoplasm of colon (principal); Z86.0100 Personal history of colon polyps, unspecified; K44.9 Diaphragmatic hernia without obstruction or gangrene; K21.9 Gastro-esophageal reflux disease without esophagitis
CPT/HCPCS: 88305; 45378; 43239; J2704

== ENCOUNTER 2025-01-06 14:44 | Emergency (ER) | payer OTHER ==
[2025-01-06 14:56] VITALS: TEMP 98.1
[2025-01-06] MEDS: PROPARACAINE 0.5% OPHTH DROPS 15 ML BTL RIGHT EYE STA (15:54)
[2025-01-06] MEDS: FLUORESCEIN STRIPS 1 MG STRIP RIGHT EYE ONE (15:55)
[2025-01-06] MEDS ORDERED: valACYclovir HCL 1,000 MG TABLET PO STA ×2 (16:24→16:25)
--- NOTE | 2025-01-06 16:34 | ED ---
General Adult HPI - General Chief complaint: Recheck/Abnormal Lab/Rx Stated complaint: bumps on face Time Seen by Provider: 01/06/25 15:21 Source: patient Limitations: no limitations - History of Present Illness Initial comments: 64-year-old male presenting with chief complaint of painful bumps to the face. Patient is having red and tender bumps on the face that started along the right side of the hairline. He now has some near the right side of his nose and on his right eyelid as well. They are tender to the touch. No bleeding or discharge. No itching. He did try taking some Benadryl at home. No vision loss. He was having some eye discomfort. No fever. He does admit to a headache. No URI-like symptoms. No difficulty breathing or swallowing. No watering or discharge from the eye. - Related Data Home Medications Medication Instructions Recorded Confirmed Aspirin 81 mg PO DAILY 08/14/14 01/05/25 Simvastatin [Zocor] 20 mg PO HS 05/25/18 01/05/25 Omeprazole [PriLOSEC] 20 mg PO DAILY 02/26/20 01/05/25 Cholecalciferol (Vitamin D3) 125 mcg PO DAILY 05/13/24 01/05/25 [Vitamin D3 (125 MCG = 5,000 IU)] Levothyroxine Sodium [Synthroid] 125 mcg PO QAM 05/13/24 01/05/25 Otc Allergy Eye Drop(Unknown) 1 drop BOTH EYES DAILY PRN 05/13/24 01/05/25 amLODIPine [Norvasc] 5 mg PO HS 05/13/24 01/05/25 Metoprolol Tartrate 25 mg PO QAM 01/02/25 01/05/25 Previous Rx's Medication Instructions Recorded valACYclovir HCL [Valacyclovir] 1,000 mg PO TID 6 Days #18 tab 01/06/25 Allergies Allergy/AdvReac Type Severity Reaction Status Date / Time hydrocodone [From [place]] AdvReac Itching Verified 01/06/25 14:56 Review of Systems ROS Statement: Those systems with pertinent positive or pertinent negative responses have been documented in the HPI. ROS Other: All systems not noted in ROS Statement are negative. 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 Absent: meningismus Respiratory exam: Absent: respiratory distress Cardiovascular Exam: Present: regular rate Neurological exam: Present: alert, oriented X3 Psychiatric exam: Present: normal affect, normal mood Skin exam: Present: rash Course Vital Signs 01/06/25 01/06/25 01/06/25 14:53 15:25 15:26 Temperature 98.1 F Pulse Rate 71 61 Respiratory 18 16 16 Rate Blood Pressure 133/79 140/77 O2 Sat by Pulse 97 96 Oximetry 01/06/25 17:01 Temperature Pulse Rate 78 Respiratory 18 Rate Blood Pressure 117/79 O2 Sat by Pulse 98 Oximetry Medical Decision Making - Medical Decision Making Was pt. sent in by a medical professional or institution (CHASITY G[facility]mez, DESIGN ARCHITECT, urgent care, hospital, or senior living...) When possible be specific @ -[No] Did you speak to anyone other than the patient for history (EMS, parent, family, police, friend...)? What history was obtained from this source @ -[No] Did you review nursing and triage notes (agree or disagree)? Why? @ -[I reviewed and agree with nursing and triage notes] Were old charts reviewed (outside hosp., previous admission, EMS record, old EKG, old radiological studies, urgent care reports/EKG's, senior living records)? Report findings @ -[No old charts were reviewed] Differential Diagnosis (chest pain, altered mental status, abdominal pain women, abdominal pain men, vaginal bleeding, weakness, fever, dyspnea, syncope, headache, dizziness, GI bleed, back pain, seizure, CVA, palpatations, mental health, musculoskeletal)? @ -Differential includes shingles, allergic reaction, cellulitis, not an all- inclusive list EKG interpreted by me (3pts min.). @ -[As above] X-rays interpreted by me (1pt min.). @ -[None done] CT interpreted by me (1pt min.). @ -[None done] U/S interpreted by me (1pt. min.). @ -[None done] What testing was considered but not performed or refused? (CT, X-rays, U/S, labs)? Why? @ -[None] What meds were considered but not given or refused? Why? @ -[None] Did you discuss the management of the patient with other professionals (professionals i.e. DrAnnette, PA, DESIGN ARCHITECT, lab, RT, psych nurse, public health social worker, cement contractor, teacher, aoc operations intelligence officer, showcase trimmer)? Give summary @ -[No] Was smoking cessation discussed for >3mins.? @ -[No] Was critical care preformed (if so, how long)? @ -[No] Were there social determinants of health that impacted care today? How? (Homelessness, low income, unemployed, alcoholism, drug addiction, transportation, low edu. Level, literacy, decrease access to med. care, care home, rehab)? @ -[No] Was there de-escalation of care discussed even if they declined (Discuss DNR or withdrawal of care, Hospice)? DNR status @ -[No] What co-morbidities impacted this encounter? (DM, HTN, Smoking, COPD, CAD, Cancer, CVA, ARF, Chemo, Hep., AIDS, mental health diagnosis, sleep apnea, morbid obesity)? @ -[None] Was patient admitted / discharged? Hospital course, mention meds given and route, prescriptions, significant lab abnormalities, going to OR and other pertinent info. @ -64-year-old male presenting with a painful rash on the right upper side of his face. Patient has a raised and tender rash along the hairline, there is 1 spot on the forehead, there is some near his nose and on his eyelid as well. Seems to follow a dermatomal pattern. Patient is having no vision loss or changes. I performed fluorescein staining and Lucas lamp examination and see no evidence of dendritic lesions. Patient will be treated for shingles with Valtr ex. He is given some extra tablets here because his pharmacy is not open tomorrow, given instructions on how to take them. He is educated on today's findings. I emphasized the importance of following up with ophthalmology, provided the patient with 3 different options for ophthalmologists in the area. Follow-up with PCP. Report back to ER with any new or worsening symptoms. Discussed return parameters and answered all questions. Patient conveyed verbal understanding and agreed to the plan. I discussed this case in detail with my attending Dr. Jacobo Undiagnosed new problem with uncertain prognosis? @ -[No] Drug Therapy requiring intensive monitoring for toxicity (Heparin, Nitro, Insulin, Cardizem)? @ -[No] Were any procedures done? @ -[No] Diagnosis/symptom? @ -Shingles Acute, or Chronic, or Acute on Chronic? @ -Acute Uncomplicated (without systemic symptoms) or Complicated (systemic symptoms)? @ -Uncomplicated Side effects of treatment? @ -[No] Exacerbation, Progression, or Severe Exacerbation? @ -[No] Poses a threat to life or bodily function? How? (Chest pain, [place], [place], pneumonia, PE, COPD, DKA, ARF, appy, cholecystitis, CVA, Diverticulitis, Homicidal, Suicidal, threat to staff... and all critical care pts) @ -Herpes zoster ophthalmicus can pose a threat to the patient's vision, I stressed that it is important for him to follow-up with ophthalmology Disposition Clinical Impression: Shingles Disposition: HOME SELF-CARE Condition: Good Instructions (If sedation given, give patient instructions): Shingles (ED) Additional Instructions: Follow-up with PCP. Follow-up with ophthalmology, call first thing on Wednesday for follow-up, I have provided you with 3 different options for ophthalmologists. Report back to ER with any new or worsening symptoms. I have given you 3 valacyclovir tablets for your Wednesday dosing. Take 1 every 8 hours Prescriptions: valACYclovir HCL [Valacyclovir] 1,000 mg PO TID 6 Days #18 tab Is patient prescribed a controlled substance at d/c from ED?: No Referrals: Jaycob Medrano DO [Primary Care Provider] - 1-2 days Keith Curtis MD [STAFF PHYSICIAN] - 1-2 days Macho Quintanilla MD [STAFF PHYSICIAN] - 1-2 days Mikie Ventura MD [STAFF PHYSICIAN] - 1-2 days Time of Disposition: 16:33
[2025-01-06] MEDS: valACYclovir HCL 1,000 MG TABLET PO STA ×2 (16:58→16:59)
[2025-01-06 17:02] VITALS: BP 117/79; PULSE 78; RESP 18
== END 2025-01-06 17:02 | disposition home or self-care (01) ==
LOC: EC 14:44
DX: B02.9 Zoster without complications (principal); Z88.5 Allergy status to narcotic agent
CPT/HCPCS: 99283